=== PATIENT | male | born 1950 | race Caucasian/White ===

== ENCOUNTER 2016-10-12 12:12 | Inpatient (IN) | payer OTHER, MEDICAID ==
[~2016-10-12] VITALS: Ht 180.3 cm; Wt 81.2 kg
[2016-10-12 12:13] VITALS: BP 139/85
--- NOTE | 2016-10-12 12:15 | NUR ---
66/M BIBA FROM FIELD FOR GENERAL WEAKNESS AWAKE AND ALERT ON ARRIVAL; PT HAS TRMOR NOTED AT THIS TIME. PATIENT DENIES N/V/D; SKIN IS PINK/WARM/DRY; AAOX4 WITH EVEN AND STEADY GAIT; LUNGS CLEAR BL; HR EVEN AND REGULAR; PT DENIES ANY FEVER, CP, SOB, OR COUGH AT THIS TIME; PATIENT STATES PAIN OF 0/10 AT THIS TIME; VSS; PATIENT POSITIONED FOR COMFORT; HOB ELEVATED; BEDRAILS UP X2; BED DOWN. ER MD MADE AWARE OF PT STATUS.
[2016-10-12] MEDS ORDERED: NACL 0.9% 500 ML IV SCH (12:19)
[2016-10-12] MEDS ORDERED: MULTIVITAMIN-12 10 ML, THIAMINE 100 MG, MAGNESIUM SULFATE 50% 2,000 MG, FOLIC ACID 5 MG... IV ONE ×5 (12:20)
[2016-10-12 13:15] LABS: BASOPHILS # (AUTO) 0.1 K/uL (0.00-0.22); BASOPHILS % (AUTO) 0.9 % (0.0-2.0); EOSINOPHILS # (AUTO) 0.1 K/uL (0-0.4); EOSINOPHILS % (AUTO) 1.2 % (0.0-4.0); HEMATOCRIT 40.8 % (36-52); HEMOGLOBIN 13.4 g/dL (12.0-18.0); LYMPHOCYTES # (AUTO) 0.5 K/uL (2.0-11.5); MEAN CORPUSCULAR HEMOGLOBIN 35 pg (27-31); MEAN CORPUSCULAR HGB CONC 33 g/dL (33-37); MEAN CORPUSCULAR VOLUME 106 fL (80-94); MONOCYTES # (AUTO) 0.7 K/uL (0.8-1.0); MONOCYTES % (AUTO) 8.7 % (1.7-9.3); NEUTROPHILS # (AUTO) 6.5 K/uL (1.8-7.7); NEUTROPHILS % (AUTO) 83.2 % (42.2-75.2); PLATELET COUNT (AUTO) 105 K/uL (140-450); RED BLOOD CELL COUNT(AUTO) 3.85 MIL/uL (4.20-6.10); RED CELL DISTRIBUTION WIDTH 12.7 % (11.6-13.7); WHITE BLOOD COUNT (AUTO) 7.9 K/uL (4.8-10.8)
[2016-10-12 13:20] LABS: ALCOHOL, BLOOD < 3 mg/dL (<3)
[2016-10-12 13:21] LABS: ACETONE, SERUM SMALL (NEGATIVE)
[2016-10-12 13:23] LABS: LACTIC ACID 1.5 mmol/L (0.4-2.0)
[2016-10-12 13:25] LABS: INR 1.1 (0.8-1.2); PARTIAL THROMBOPLASTIN TIME 22.7 secs (22-35.6); PROTHROMBIN TIME 10.2 secs (10.8-13.4)
[2016-10-12 13:33] LABS: CREATINE KINASE, TOTAL 3317 U/L (39-308)
[2016-10-12 13:34] LABS: ANION GAP 31.6 (8-16); CALCIUM 8.7 mg/dL (8.5-10.1); CARBON DIOXIDE 15.1 mmol/L (21-32); CREATININE 1.3 mg/dL (0.6-1.3); POTASSIUM 3.7 mmol/L (3.5-5.1)
[2016-10-12 13:41] LABS: ALBUMIN 3.8 g/dL (3.4-5.0); TOTAL BILIRUBIN 1.5 mg/dL (0.0-1.0); TOTAL PROTEIN, SERUM 8.4 g/dL (6.4-8.2)
[2016-10-12] MEDS ORDERED: LACTATED RINGERS 1,000 ML IV ONE (14:05)
[2016-10-12] MEDS ORDERED: ONDANSETRON 4 MG/2 ML VIAL IVP PRN (14:15)
[2016-10-12] MEDS ORDERED: ACETAMINOPHEN 325 MG TAB PO PRN (14:15)
[2016-10-12] MEDS ORDERED: HYDROcodone/APAP 7.5/325 MG 1 TAB PO PRN (14:15)
[2016-10-12] MEDS ORDERED: LORazepam 2 MG/ML VIAL IVP PRN (14:30)
--- NOTE | 2016-10-12 15:04 | NUR ---
UA CAN NOT COLLECTED. PT REFUSED STRAIT CATH. NOTIFIED
--- NOTE | 2016-10-12 15:04 | NUR ---
GAVE REPORT TO BRYANT OLVERA
--- NOTE | 2016-10-12 15:05 | NUR ---
Patient will be admitted to care of DR JEAN-BAPTISTE. Admited to [facility]. Will go to [id number]. Belongings list completed. Report to BRYANT OLVERA.
[2016-10-12 15:13] LABS: MAGNESIUM 1.8 mg/dL (1.8-2.4); PHOSPHORUS 4.7 mg/dL (2.5-4.9)
--- NOTE | 2016-10-12 15:15 | NUR ---
PT ARRIVED SHORTLY AFTER RECEIVING REPORT FROM THE ER. 2 NURSES CAME WITH PT. PT WAS UNABLE TO SCOOT FROM ONE BED TO ANOTHER. PT IS DIRTY AND HAS BODY ODOR. PT IS WET AND NEEDED TO BE CHANGED. PT HAS IV ON R AC 20G SL AND L WRIST 20G SL. I ADMINISTERED THE BANANA BAG WHICH WAS NOT FINISHED IN THE ER. PT ALSO HAS A BAG OF LR, A NEW BAG. WILL HANG THIS ONE AFTER. ATTACHED THE LEADS FOR THE TELE MONITOR., PUT ON YELLOW SOCK AND BAND AND SIGN OUTSIDE THE DOOR. GAVE PT A URINAL. ADVISED PT NOT GET OUT OF BED D/T WEAKNESS IN THE LEGS. SKIN IS INTACT. JUST OLD SCABS ON ALL EXTREMITIES. MRSA SCREENING DONE. V/S WITHIN NORMAL LIMITS. ORIENTED PT TO THE ROOM AND CALL LIGHT. WILL CONTINUE TO MONITOR PT.
--- NOTE | 2016-10-12 15:50 | NUR ---
DR. CAIN WITH PT TO DO ASSESSMENT AND MEDICAL HX.
[2016-10-12 15:57] VITALS: BP 131/83
[2016-10-12] MEDS: NACL 0.9% 1,000 ML IV SCH ×2 (16:00→23:01)
--- NOTE | 2016-10-12 16:30 | NUR ---
PT IS WET. CHANGED GOWN AND PADS. CLEANED PT.
--- NOTE | 2016-10-12 16:40 | NUR ---
US YARDMASTER HERE TO DO US OF ABDOMEN.
[2016-10-12 17:08] LABS: FREE T4 (FREE THYROXINE) 1.1 ng/dL (0.76-1.46); THYROID STIMULATING HORMONE 5.33 uIU/mL (0.34-3.76)
[2016-10-12] MEDS ORDERED: ASPIRIN 81 MG TAB.CHEW PO SCH (17:30)
--- NOTE | 2016-10-12 17:36 | NUR ---
PT RESTING COMFORTABLY. WAITING FOR DINNER. NO SIGNS OF DISTRESS. BANANA BAG ALMOST DONE. WILL SWITCH TO LR. OK TO .
--- NOTE | 2016-10-12 19:27 | NUR ---
ENDORSED PT TO THE ENTRY LEVEL WEB DEVELOPER NURSE AT BEDSIDE FOR CONTINUITY OF CARE. PT IS IN STABLE CONDITION.
--- NOTE | 2016-10-12 19:28 | NUR ---
RECEIVED REPORT FROM DAY RN FOR CONTINUITY OF CARE. PATIENT IS A&OX 2/3, CONFUSED AT TIMES. SHIFT ASSESSMENT DONE, VS TAKEN, STABLE AT THIS TIME. NO S/S OF RESPIRATORY DISTRESS NOTED ON ROOM AIR. PATIENT DENIES PAIN AT THIS TIME. IV TO RT AC FLUSHED AND REINFORCED DRESSING. IV TO LT WRIST PATENT AND INFUSING FLUIDS WELL. PT HAS SMALL ABRASIONS THROUGHOUT BODY, INTACT. SAFETY/ FALL PRECAUTIONS ENFORCED. CALL LIGHT WITHIN REACH. WILL CONTINUE TO MONITOR.
[2016-10-12 20:00] VITALS: BP 111/70
[2016-10-12] MEDS: ATORVASTATIN 20 MG TAB PO SCH (21:38)
--- NOTE | 2016-10-12 21:38 | NUR ---
DUE MEDICATIONS ADMINISTERED, TOLERATED WELL. PT RESTING IN BED NO S/S OF DISTRESS NOTED. WILL CONTINUE TO MONITOR.
[2016-10-12] MEDS: LORazepam 1 MG TAB PO SCH (21:39)
[2016-10-12] MEDS: DOCUSATE SODIUM 100 MG GELCAP PO SCH (21:39)
--- NOTE | 2016-10-12 22:30 | NUR ---
PT TRYING TO GET OUT OF BED CONFUSED, REORIENTED PATIENT AND REPOSITIONED. WILL CONTINUE TO MONITOR.
[2016-10-13] VITALS: BP 135/84
--- NOTE | 2016-10-13 00:10 | NUR ---
VS TAKEN, STABLE. PT RESTING IN BED ALL NEEDS MET AT THIS TIME. WILL CONTINUE TO MONITOR.
--- NOTE | 2016-10-13 01:56 | NUR ---
PATIENT CONFUSED TRYING TO GET OUT OF BED, RE-ORIENTED PT. WILL CONTINUE TO MONITOR.
[2016-10-13 04:00] VITALS: BP_SYST 136; BP_SYST 144; BP_DIAS 78
--- NOTE | 2016-10-13 04:03 | NUR ---
VS TAKEN, STABLE. REINFORCED DRESSING TO IV. CHANGED PT LINENS AND GOWN. WILL CONTINUE TO MONITOR.
[2016-10-13] MEDS: LORazepam 1 MG TAB PO SCH ×3 (04:51→20:38)
--- NOTE | 2016-10-13 05:51 | NUR ---
PATIENT ATTEMPTING TO GET OUT OF BED, REORIENTED AND RETURNED TO BED. WILL CONTINUE TO MONITOR.
[2016-10-13 06:16] LABS: BASOPHILS # (AUTO) 0.1 K/uL (0.00-0.22); BASOPHILS % (AUTO) 1.4 % (0.0-2.0); EOSINOPHILS # (AUTO) 0.1 K/uL (0-0.4); EOSINOPHILS % (AUTO) 0.9 % (0.0-4.0); HEMATOCRIT 33.1 % (36-52); HEMOGLOBIN 11.1 g/dL (12.0-18.0); LYMPHOCYTES # (AUTO) 0.8 K/uL (2.0-11.5); LYMPHOCYTES % (AUTO) 13.7 % (20.5-51.1); MEAN CORPUSCULAR HEMOGLOBIN 35 pg (27-31); MEAN CORPUSCULAR HGB CONC 34 g/dL (33-37); MEAN CORPUSCULAR VOLUME 105 fL (80-94); MONOCYTES # (AUTO) 0.7 K/uL (0.8-1.0); MONOCYTES % (AUTO) 10.6 % (1.7-9.3); NEUTROPHILS # (AUTO) 4.4 K/uL (1.8-7.7); NEUTROPHILS % (AUTO) 73.4 % (42.2-75.2); PLATELET COUNT (AUTO) 98 K/uL (140-450); RED BLOOD CELL COUNT(AUTO) 3.14 MIL/uL (4.20-6.10); RED CELL DISTRIBUTION WIDTH 12.8 % (11.6-13.7); WHITE BLOOD COUNT (AUTO) 6.1 K/uL (4.8-10.8)
[2016-10-13 06:41] LABS: CALCIUM 7.9 mg/dL (8.5-10.1); CREATININE 0.9 mg/dL (0.6-1.3)
[2016-10-13 06:53] LABS: POTASSIUM 3.1 mmol/L (3.5-5.1)
[2016-10-13 06:56] LABS: CARBON DIOXIDE 19.5 mmol/L (21-32)
[2016-10-13 06:57] LABS: ANION GAP 22.6 (8-16)
[2016-10-13 06:58] LABS: MAGNESIUM 1.6 mg/dL (1.8-2.4); PHOSPHORUS 2.5 mg/dL (2.5-4.9)
[2016-10-13] MEDS: NACL 0.9% 1,000 ML IV SCH ×3 (07:02→23:35)
--- NOTE | 2016-10-13 07:40 | NUR ---
ENDORSED PATIENT TO DAY RN FOR CONTINUITY OF CARE, PATIENT IS IN STABLE CONDITION.
--- NOTE | 2016-10-13 07:41 | NUR ---
RECEIVED ON BED AAOX2, CONFUSED. NO SOB NOTED. NO C/O PAIN AT THIS TIME IV TO RT AC PATENT AND INTACT. CHEST CLEAR. ABDOMEN SOFT, BOWEL SOUNDS PRESENT. NO EDEMA NOTED. ABRASIONS ON BUE/BLE,FUNGUS ON TOE NAILS,DRY BLACK SCABS ON LT PLANTAR NOTED. INSTRUCTED TO CALL FOR ASSISTANCE, CALL LIGHT WITHIN REACH. PT VERBALIZED PARTIAL UNDERSTANDING.
[2016-10-13 08:00] VITALS: BP 128/76
--- NOTE | 2016-10-13 08:00 | NUR ---
RECEIVED ON BED AAOX2, CONFUSED. NO SOB NOTED. NO C/O PAIN AT THIS TIME IV TO RT AC PATENT AND INTACT. CHEST CLEAR. ABDOMEN SOFT, BOWEL SOUNDS PRESENT. NO EDEMA NOTED. ABRASIONS ON BUE/BLE,FUNGUS ON TOE NAILS,DRY BLACK SCABS ON LT PLANTAR NOTED. INSTRUCTED TO CALL FOR ASSISTANCE, CALL LIGHT WITHIN REACH. PT VERBALIZED PARTIAL UNDERSTANDING. Addendum: 10/13/16 at 1101 by Irene Schwab RN DISREGARD ABOVE NOTES, DUPLICATE.
[2016-10-13] MEDS ORDERED: MULTIVITAMIN 1 TAB PO SCH (09:00)
--- NOTE | 2016-10-13 09:30 | NUR ---
PHYSICAL THERAPY ON GOING AT THE BEDSIDE.
[2016-10-13] MEDS: DOCUSATE SODIUM 100 MG GELCAP PO SCH ×2 (09:56→20:36)
[2016-10-13] MEDS: ASPIRIN 81 MG TAB.CHEW PO SCH (09:56)
[2016-10-13] MEDS: PANTOPRAZOLE 40 MG INJ VIAL IVP SCH (09:56)
[2016-10-13] MEDS: THIAMINE 100 MG TAB PO SCH (09:57)
[2016-10-13] MEDS: MAGNESIUM OXIDE 400 MG TAB PO SCH ×2 (09:57→20:38)
[2016-10-13] MEDS: FOLIC ACID 1 MG TAB PO SCH (09:57)
--- NOTE | 2016-10-13 10:16 | NUR ---
PATIENT HAS BEEN SCREENED AND CATEGORIZED MODERATE NUTRITION RISK. PATIENT WILL BE SEEN WITHIN 3-5 DAYS OF ADMISSION. 10/15/16-10/17/[address]
[2016-10-13] MEDS ORDERED: FLUCONAZOLE 100 MG TAB PO SCH (10:20)
[2016-10-13] MEDS ORDERED: POTASSIUM CHLORIDE 10 MEQ TABER PO SCH (10:32)
[2016-10-13 11:35] LABS: CKMB RELATIVE INDEX 0.7 (0.0-2.5); CREATINE KINASE MB 14.4 ng/mL (0-3.6)
[2016-10-13 12:00] VITALS: BP 150/77
--- NOTE | 2016-10-13 14:54 | NUR ---
PT AGITATED AND TRYING TO GET OUT OF BED. ATIVAN IVP GIVEN PRN. WILL CONTINUE TO MONITOR.
--- NOTE | 2016-10-13 15:30 | NUR ---
PT RESTING, CALM. NO SOB NOTED. WILL CONTINUE TO MONITOR.
--- NOTE | 2016-10-13 15:36 | NUR ---
PT HAS BEEN INCONTINENT WITH BOWEL AND BLADDER. UNABLE TO COLLECT URINE FOR URINALYSIS. DR. CAIN NOTIFIED. NO NEW ORDERS.
[2016-10-13 16:00] VITALS: BP 144/73
--- NOTE | 2016-10-13 17:15 | NUR ---
PT SEEN BY DR. DUNCAN (PODIATRY). CONSENT FOR SURGICAL DEBRIDEMENT OF TOE NAILS NOT SIGNED BY PT DUE TO CONDITION. PT IS CALM NOW BUT DROWSY FORM ATIVAN. NO NEXT OF KIN ON PT'S FACE SHEET. DR. DUNCAN MADE AWARE AND STATED HE WILL COME BACK TOMORROW.
--- NOTE | 2016-10-13 18:00 | NUR ---
PT AWAKE, EATING DINNER ASSISTED BY EVENT PLANNING INTERN. FOOD TOLERATED WELL.
--- NOTE | 2016-10-13 19:30 | NUR ---
RECEIVED REPORT FROM DAYSHIFT NURSE. PT RESTING IN BED, AOX2, CONFUSED AT TIMES. PT DENIES CP, SOB, PAIN OR S/S OF ACUTE DISTRESS. GENERALIZED WEAKNESS NOTED. WARNING COORDINATION METEOROLOGIST IN PLACE. SCDS IN PLACE. MULTIPLE ABRASIONS NOTED, BILATERAL TOES FUNGUS AND DRY RIGHT PLANTAR SCAB NOTED. DISCUSSED AND REVIEWED PLAN OF CARE WITH PT, PT VERBALIZES UNDERSTANDING. WILL CONTINUE TO REINFORCE. PT UNABLE TO SIGN CONSENT FOR SURGICAL DEBRIDEMENT AT THIS TIME DUE TO CONFUSION. PT STATED "I DON'T WANT CUTS ON MY FEET BECAUSE I JUST DRINK ALCOHOL." NO NEXT OF KIN NOTED AT THIS TIME. PT INSTRUCTED TO USE CALL LIGHT TO USE URINAL TO GET URINE SAMPLE, PT INCONTINENT, WILL CONTINUE TO TRY TO GET URINE SAMPLE. IV ACCESS ASYMPTOMATIC, PATENT AND INTACT. IVF INFUSING WELL. SAFETY MEASURES ENSURED. CALL LIGHT WITHIN REACH. WILL CONTINUE TO MONITOR.
[2016-10-13 20:00] VITALS: BP 145/93
--- NOTE | 2016-10-13 20:00 | NUR ---
PT TEMP 99.8, COOLING MEASURES AND ICE PACKS STARTED. PT DENIES CHILLS OR S/S OF INFECTION. WILL CONTINUE TO MONITOR.
[2016-10-13] MEDS: ATORVASTATIN 20 MG TAB PO SCH (20:39)
--- NOTE | 2016-10-13 20:47 | NUR ---
PT REFUSED ATORVASTATIN DESPITE EDUCATION, CHOLESTEROL 169, LDL 70, HDL 85; PT STATED "IF IT AIN'T BROKE, DON'T FIX IT." REMAINING DUE MEDICATIONS ADMINISTERED WITH EDUCATION, PT VERBALIZES UNDERSTANDING. PT TOLERATED MEDS WELL. ASSISTED PT WITH ADLS. US TECH IN TO DO US CAROTID AT BEDSIDE.
--- NOTE | 2016-10-13 22:00 | NUR ---
PT TEMP 98.4, NO CHILLS OR S/S OF INFECTION. CONDITION STABLE. WILL CONTINUE TO MONITOR.
[2016-10-14] VITALS: BP 154/94
--- NOTE | 2016-10-14 | NUR ---
PT RESTING IN BED. CONDITION STABLE. ALL NEEDS MET. SAFETY MEASURES ENSURED. CALL LIGHT WITHIN REACH. WILL CONTINUE TO MONITOR.
--- NOTE | 2016-10-14 03:50 | NUR ---
ATTEMPTED TO TAKE ORTHOSTATIC VITAL SIGNS. PT ABLE TO SIT UPRIGHT WITH ASSISTANCE. VS NOTED WITH SITTING. PT ABLE TO STAND WITH 2 PERSON ASSIST WITH MAXIMUM ASSISTANCE, SEVERE WEAKNESS OF LEGS NOTED. UNABLE TO TAKE VS WHILE STANDING. PT TOLERATED WELL. ATTEMPTED TO OBTAIN CONSENT FOR SURGICAL DEBRIDEMENT OF TOES, PT REFUSED AND STATED "I DON'T WANT TO GET CUT UP, I WOULD JUST CLEAN THEM WITH ALCOHOL." PT EDUCATED AND INFORMED OF THE INDICATIONS AND RISKS. WILL CONTINUE TO MONITOR.
[2016-10-14 04:00] VITALS: BP 124/76
[2016-10-14] MEDS: LORazepam 1 MG TAB PO SCH ×3 (04:43→21:05)
[2016-10-14 06:20] LABS: BASOPHILS # (AUTO) 0.1 K/uL (0.00-0.22); BASOPHILS % (AUTO) 1.6 % (0.0-2.0); EOSINOPHILS % (AUTO) 0.8 % (0.0-4.0); HEMATOCRIT 33.2 % (36-52); HEMOGLOBIN 11.2 g/dL (12.0-18.0); LYMPHOCYTES # (AUTO) 0.8 K/uL (2.0-11.5); LYMPHOCYTES % (AUTO) 15.2 % (20.5-51.1); MEAN CORPUSCULAR HEMOGLOBIN 36 pg (27-31); MEAN CORPUSCULAR HGB CONC 34 g/dL (33-37); MEAN CORPUSCULAR VOLUME 106 fL (80-94); MONOCYTES # (AUTO) 0.6 K/uL (0.8-1.0); MONOCYTES % (AUTO) 11.9 % (1.7-9.3); NEUTROPHILS # (AUTO) 3.9 K/uL (1.8-7.7); NEUTROPHILS % (AUTO) 70.5 % (42.2-75.2); PLATELET COUNT (AUTO) 113 K/uL (140-450); RED BLOOD CELL COUNT(AUTO) 3.12 MIL/uL (4.20-6.10); WHITE BLOOD COUNT (AUTO) 5.4 K/uL (4.8-10.8)
[2016-10-14 06:36] LABS: ANION GAP 12.4 (8-16); CARBON DIOXIDE 28.6 mmol/L (21-32); CREATININE 0.8 mg/dL (0.6-1.3)
[2016-10-14 06:44] LABS: MAGNESIUM 1.2 mg/dL (1.8-2.4); PHOSPHORUS 1.9 mg/dL (2.5-4.9)
[2016-10-14] MEDS ORDERED: MAG SULF 2000 MG/WATER PREMIX 100 ML IV SCH ×2 (07:30→11:20)
--- NOTE | 2016-10-14 07:33 | NUR ---
ENDORSED TO PLAN OF CARE TO DAYSHIFT. CONDITION STABLE.
--- NOTE | 2016-10-14 07:34 | NUR ---
RECEIVED REPORT FROM THE TROUBLE TRACER NURSE AT BEDSIDE FOR CONTINUITY OF CARE. PT IS SLEEPING. NO SIGNS OF DISTRESS. WILL BE BACK TO ASSESS PT.
[2016-10-14] MEDS: NACL 0.9% 1,000 ML IV SCH (07:55)
[2016-10-14 08:00] VITALS: BP 148/77
[2016-10-14] MEDS ORDERED: POTASSIUM CHLORIDE 10 MEQ TABER PO SCH ×2 (08:00→13:00)
[2016-10-14] MEDS: SODIUM PHOS / POTASSIUM PHOS 1 PKT PDR PO SCH ×3 (08:00→17:00)
--- NOTE | 2016-10-14 08:10 | NUR ---
V/S WITHIN NORMAL LIMITS. PT IS AWAKE. I INTRODUCED MYSELF AND UPDATED THE BOARD. PT IS STILL CONFUSED. DR. DUNCAN ORDERED SURGICAL DEBRIDEMENT OF TOES. PER BRIM MOLDER NURSE, PT REFUSED TO SIGN . UA STILL HASN'T BEEN COLLECTED SINCE PT IS INCONTINENT. IV IN R AC 20G NS AT 120 STILL INFUSING. PT IS LOW IN MAG, PHOS, AND K. WILL TALK TO MD. WILL CONTINUE TO MONITOR PT.
--- NOTE | 2016-10-14 08:30 | NUR ---
P/T IS HERE. GOT HIM UP BUT SO WOBBY AND SHAKEY ON HIS FEET. SAT HIM DOWN IN A LARGE CHAIR. BREAKFAST IN IT. WILL HAVE THE TIPPLE MECHANIC CHANGE LINENS. WILL CONTINUE TO MONITOR PT.
[2016-10-14] MEDS: LACTOBACILLUS RHAMNOSUS GG 1 EACH CAP PO SCH (09:00)
[2016-10-14] MEDS: MAGNESIUM OXIDE 400 MG TAB PO SCH ×2 (09:01→21:06)
[2016-10-14] MEDS: ASPIRIN 81 MG TAB.CHEW PO SCH (09:01)
[2016-10-14] MEDS: THIAMINE 100 MG TAB PO SCH (09:02)
[2016-10-14] MEDS: DOCUSATE SODIUM 100 MG GELCAP PO SCH ×2 (09:02→21:05)
[2016-10-14] MEDS: FOLIC ACID 1 MG TAB PO SCH (09:02)
[2016-10-14] MEDS: MULTIVITAMIN/MINERALS 1 TAB PO SCH (09:02)
[2016-10-14] MEDS: PANTOPRAZOLE 40 MG INJ VIAL IVP SCH (09:03)
--- NOTE | 2016-10-14 09:10 | NUR ---
ADMINISTERED MORNING MEDS. PT TOLERATED WELL. MAG INFUSING. WILL CONTINUE TO MONITOR PT.
--- NOTE | 2016-10-14 10:50 | NUR ---
PT BACK IN BED. NO COMPLAINTS AT THIS TIME. WILL CONTINUE TO MONITOR. PT.
[2016-10-14 12:00] VITALS: BP 145/80
[2016-10-14] MEDS: PIPER/TAZO 2.25GM/D5W PREMIX 50 ML IV SCH ×2 (12:55→18:02)
--- NOTE | 2016-10-14 13:59 | NUR ---
PT IS RESTING COMFORTABLY IN BED, DOZING OFF. ATE MOST OF HIS LUNCH. NO SIGNS OF DISTRESS. NO COMPLAINTS AT THIS TIME. WILL CONTINUE TO MONITOR PT.
--- NOTE | 2016-10-14 14:42 | NUR ---
SS NOTE: PER ANAHI FROM [facility] ([phone]), THEY ARE ABLE TO ACCEPT PT UPON DISCHARGE.
--- NOTE | 2016-10-14 14:47 | NUR ---
PT HAD A BM. CLEANED PT WITH CULINARY ASSISTANT. PT IS CLEAN AND RESTING COMFORTABLY. WILL CONTINUE TO MONITOR PT.
[2016-10-14 16:00] VITALS: BP 149/92
--- NOTE | 2016-10-14 16:20 | NUR ---
PT RESTING COMFORTABLY. NO SIGNS OF DISTRESS. WILL CONTINUE TO MONITOR PT.
[2016-10-14 17:36] LABS: APPEARANCE,URINE CLEAR (CLEAR); BILIRUBIN,URINE NEGATIVE (NEGATIVE); BLOOD, URINE NEGATIVE (NEGATIVE); COLOR,URINE YELLOW (YELLOW); LEUKOCYTE ESTERASE ,URINE NEGATIVE (NEGATIVE); NITRITE, URINE NEGATIVE (NEGATIVE); PROTEIN,URINE NEGATIVE (NEGATIVE); UGLUCOSE NEGATIVE (NEGATIVE); UROBILINOGEN,URINE 0.2 EU/dL (0.2 - 1)
[2016-10-14 17:37] LABS: AMPHETAMINE, URINE NEG. ng/ml (NEG <=1000); BARBITURATE, URINE NEG. ng/ml (NEG <=200); BENZODIAZEPINE, URINE NEG. ng/mL (NEG <=200); CANNABINOID, URINE NEG. ng/mL (NEG <=50); COCAINE, URINE NEG. ng/mL (NEG <=300); OPIATE, URINE NEG. ng/mL (NEG <=2000); PHENCYCLIDINE SCREEN,URINE NEG. ng/mL (NEG <=25)
[2016-10-14 17:47] LABS: BACTERIA,URINE None Seen /HPF (None Seen); RBC,URINE 0-3 /HPF (0-5); SQUAMOUS EPITHELIAL CELL,UR RARE /LPF (0-3 (FEW)); WBC,URINE 0-3 /HPF (0-5)
--- NOTE | 2016-10-14 18:18 | NUR ---
PT EATING DINNER. NO SIGNS OF DISTRESS. NO COMPLAINTS. WILL CONTINUE TO MONITOR PT.
--- NOTE | 2016-10-14 19:20 | NUR ---
ENDORSED PT TO THE PROPELLER ENGINEER NURSE AT BEDSIDE FOR CONTINUITY OF CARE . PT IS EATING DINNER. PT IN STABLE CONDITION.
--- NOTE | 2016-10-14 19:25 | NUR ---
RECEIVED PT FROM MAY HURTADO PT IS AAOX3 COOPERATIVE IV ON RT FA INFUSING WELL TKO NOT DISTRESS NOTED AT THIS TIME REPOSITIONED
[2016-10-14 20:00] VITALS: BP 154/91
[2016-10-14] MEDS: ATORVASTATIN 20 MG TAB PO SCH (21:05)
--- NOTE | 2016-10-14 22:30 | NUR ---
MAG 1.7 DR QUICK DIRECTOR OF INSTITUTIONAL SALES FOR DR JEAN-BAPTISTE WAS NOTIFY
[2016-10-15] VITALS: BP 136/79
[2016-10-15] MEDS: PIPER/TAZO 2.25GM/D5W PREMIX 50 ML IV SCH ×3 (00:16→12:03)
--- NOTE | 2016-10-15 02:30 | NUR ---
SPONGE BATH GIVEN LINEN CHANGED REPOSITIONED Q2HNOT DISTRESS NOTED AT THIS TIME
[2016-10-15] MEDS: LORazepam 1 MG TAB PO SCH ×2 (04:27→12:03)
--- NOTE | 2016-10-15 05:09 | NUR ---
PT REPOSITIONED AND LINE CHANGED AGAIN PT WAS WET
[2016-10-15] MEDS: NACL 0.9% 1,000 ML IV SCH (06:52)
--- NOTE | 2016-10-15 06:53 | NUR ---
PT SLEEPING NOT DISTRESS NOTED ,IV ON RT FA INFUSING WELL LINEN ALREADY CHANGED
--- NOTE | 2016-10-15 06:54 | NUR ---
RECEIVED REPORT FROM NIGHT RN AT PT BEDSIDE. PT RESTING IN BED. ALERT TO SELF AND ENVIRONMENT. CALM AND COOPERATIVE, CONFUSED. DENIES PAIN. NO S/S OF ACUTE DISTRESS. BED ALARM CHECKED. BED IN LOWEST POSITION. CALL LIGHT WITHIN REACH. IV SITE PATENT AND INTACT. WILL CONTINUE TO MONITOR.
[2016-10-15 08:00] VITALS: BP 149/89
[2016-10-15] MEDS: SODIUM PHOS / POTASSIUM PHOS 1 PKT PDR PO SCH ×2 (08:00→12:03)
--- NOTE | 2016-10-15 09:00 | NUR ---
MD ROUNDED WITH PATIENT. NO NEW ORDERS.
[2016-10-15] MEDS: FOLIC ACID 1 MG TAB PO SCH (09:06)
[2016-10-15] MEDS: DOCUSATE SODIUM 100 MG GELCAP PO SCH (09:06)
[2016-10-15] MEDS: PANTOPRAZOLE 40 MG INJ VIAL IVP SCH (09:06)
[2016-10-15] MEDS: ASPIRIN 81 MG TAB.CHEW PO SCH (09:06)
[2016-10-15] MEDS: LACTOBACILLUS RHAMNOSUS GG 1 EACH CAP PO SCH (09:06)
[2016-10-15] MEDS: MULTIVITAMIN/MINERALS 1 TAB PO SCH (09:07)
[2016-10-15] MEDS: MAGNESIUM OXIDE 400 MG TAB PO SCH (09:07)
[2016-10-15] MEDS: THIAMINE 100 MG TAB PO SCH (09:07)
[2016-10-15 10:23] LABS: BASOPHILS # (AUTO) 0.2 K/uL (0.00-0.22); BASOPHILS % (AUTO) 3.7 % (0.0-2.0); EOSINOPHILS % (AUTO) 0.6 % (0.0-4.0); HEMATOCRIT 37.5 % (36-52); HEMOGLOBIN 12.6 g/dL (12.0-18.0); LYMPHOCYTES % (AUTO) 19.7 % (20.5-51.1); MEAN CORPUSCULAR HEMOGLOBIN 36 pg (27-31); MEAN CORPUSCULAR HGB CONC 34 g/dL (33-37); MEAN CORPUSCULAR VOLUME 106 fL (80-94); MONOCYTES # (AUTO) 0.4 K/uL (0.8-1.0); MONOCYTES % (AUTO) 9.1 % (1.7-9.3); NEUTROPHILS # (AUTO) 3.3 K/uL (1.8-7.7); NEUTROPHILS % (AUTO) 66.9 % (42.2-75.2); PLATELET COUNT (AUTO) 131 K/uL (140-450); RED BLOOD CELL COUNT(AUTO) 3.55 MIL/uL (4.20-6.10); RED CELL DISTRIBUTION WIDTH 12.5 % (11.6-13.7)
[2016-10-15 11:16] LABS: WHITE BLOOD COUNT (AUTO) 4.9 K/uL (4.8-10.8)
--- NOTE | 2016-10-15 11:32 | NUR ---
SS NOTE: PER ANAHI FROM [facility] ([phone]), PT CAN GO TO ROOM [address] UNDER DR. Chevy BOB ANYTIME. SHE ALSO STATED THAT THEY CAN PAY FOR [facility]. ARSENIO KERNS.
--- NOTE | 2016-10-15 12:08 | NUR ---
transport arranged with [facility]/Darren faust and pick up truck driver at 3 pm. will go to [facility] room 225A.
--- NOTE | 2016-10-15 12:30 | NUR ---
REPORT GIVEN TO BRYANT KELLY AT [facility]. MADE AWARE OF PATIENT TRANSFER AND CIGAR MAKING MACHINE OPERATOR TIME. PT RESTING IN BED, MADE AWARE OF PLANS AND PROCEDURES. OKAY WITH TRANSFER. Addendum: 10/15/16 at 1432 by Robbin Kirk RN *PATIENT OKAY WITH TRANSFER TO [facility].*
[2016-10-15] MEDS ORDERED: MULT-1736 PO (12:42)
[2016-10-15] MEDS ORDERED: PHOS1PDR4 PO (12:42)
[2016-10-15] MEDS ORDERED: ONDA2SOL45 IVP (12:42)
[2016-10-15] MEDS ORDERED: DOCU-67 PO (12:42)
[2016-10-15] MEDS ORDERED: ATI2I IVP (12:42)
[2016-10-15] MEDS ORDERED: ATOR20TA40 PO (12:42)
[2016-10-15] MEDS ORDERED: LORA-476 PO (12:42)
[2016-10-15] MEDS ORDERED: ACET-9529 PO (12:42)
[2016-10-15] MEDS ORDERED: ACET-1182 PO (12:42)
[2016-10-15] MEDS ORDERED: LACT10CA PO (12:42)
[2016-10-15] MEDS ORDERED: PANT40PD7 IVP (12:42)
[2016-10-15] MEDS ORDERED: THIA-8 PO (12:42)
[2016-10-15] MEDS ORDERED: MAG400 PO (12:42)
[2016-10-15] MEDS ORDERED: FOLI1TAB90 PO (12:42)
[2016-10-15] MEDS ORDERED: ASPI81CT27 PO (12:42)
--- NOTE | 2016-10-15 13:43 | NUR ---
PER ANAHI AT [facility] THEY WILL COVER THE COST OF PT TRANSPORT AND SHE HAS CHANGED PICKUP TIME TO 1600
--- NOTE | 2016-10-15 14:30 | NUR ---
PT FOUND WITH IV REMOVED. NEW IV #20 RIGHT FA, STARTED.
--- NOTE | 2016-10-15 16:00 | NUR ---
PT DISCHARGE INSTRUCTIONS GIVEN, VERBALIZED UNDERSTANDING. PT ALERT AND ORIENTED TO TIME AND PLACE. PT DENIES PAIN. [facility] HERE TO TAKE PATIENT TO [facility]. [facility] AWARE OF PATIENT TRANSFER. PT IV SITE PATENT AND INTACT. PT TRANSFERRED SELF TO WHEELCHAIR WITH ASSIST. PT STABLE FOR DISCHARGE.
== END 2016-10-15 16:00 | DRG 73 ==
LOC: MED 12:12 → MTU 14:25
PROVIDERS: ADMIT Family Medicine; ATTEND Family Medicine
PROC: 0HBRXZZ Excision of Toe Nail, External Approach (ICD-10-PCS; principal; 2016-10-14)
PROC: 0HBRXZZ Excision of Toe Nail, External Approach (ICD-10-PCS; 2016-10-14)
PROC: 0HBRXZZ Excision of Toe Nail, External Approach (ICD-10-PCS; 2016-10-14)
PROC: 0HBRXZZ Excision of Toe Nail, External Approach (ICD-10-PCS; 2016-10-14)
PROC: 0HBRXZZ Excision of Toe Nail, External Approach (ICD-10-PCS; 2016-10-14)
PROC: 0HBRXZZ Excision of Toe Nail, External Approach (ICD-10-PCS; 2016-10-14)
PROC: 0HBRXZZ Excision of Toe Nail, External Approach (ICD-10-PCS; 2016-10-14)
PROC: 0HBRXZZ Excision of Toe Nail, External Approach (ICD-10-PCS; 2016-10-14)
PROC: 0HBRXZZ Excision of Toe Nail, External Approach (ICD-10-PCS; 2016-10-14)
PROC: 0HBRXZZ Excision of Toe Nail, External Approach (ICD-10-PCS; 2016-10-14)
DX: G90.9 Disorder of the autonomic nervous system, unspecified (principal); I50.43 Acute on chronic combined systolic (congestive) and diastolic (congestive) heart failure; N17.0 Acute kidney failure with tubular necrosis; G92 Toxic encephalopathy; M62.82 Rhabdomyolysis; E87.2 Acidosis; E51.2 Wernicke's encephalopathy; F10.288 Alcohol dependence with other alcohol-induced disorder; R78.81 Bacteremia; E86.0 Dehydration; E80.6 Other disorders of bilirubin metabolism; E87.6 Hypokalemia; E83.42 Hypomagnesemia; B35.1 Tinea unguium; I11.0 Hypertensive heart disease with heart failure; E83.39 Other disorders of phosphorus metabolism; Z59.0 Homelessness; Z56.0 Unemployment, unspecified; Z87.81 Personal history of (healed) traumatic fracture
CPT/HCPCS: 36415; 70450; 71010; 76705; 80048; 80053; 80305; 81001; 82009; 82140; 82150; 82550; 82553; 82948; 83036; 83605; 83690; 83735; 83874; 83880; 84100; 84439; 84443; 84484; 85025; 85610; 85730; 87040; 87081; 87086; 93005; 93880; 96374; 97110; 97116; 97140; 97530; 99285; A9153; C9113; G0482; J2060; J2543; J3411; J3475; J3490; J7030; J7120; Q0092

== ENCOUNTER 2017-06-15 11:08 | Inpatient (IN) | payer OTHER ==
[~2017-06-15] VITALS: Ht 180.3 cm; Wt 78.5 kg
[~2017-06-15 11:08] MED LIST: ACET-1182 PO; ACET-9529 PO; ASPI81CT95 PO; ATI2I IVP; ATOR20TA40 PO; DOCU-299 PO; FOLI1TAB90 PO; LACT10CA PO; LORA-476 PO; MAG400 PO; MULT-1736 PO; ONDA2SOL45 IVP; PANT40PD7 IVP; PHOS1PDR4 PO; THIA-8 PO
[2017-06-15 11:10] VITALS: BP 155/102
[2017-06-15] MEDS ORDERED: NACL 0.9% 2,000 ML IV ONE (12:05)
[2017-06-15 13:30] LABS: ANION GAP 17.2 (8-16); BASOPHILS # (AUTO) 0.1 K/uL (0.00-0.22); BASOPHILS % (AUTO) 1.1 % (0.0-2.0); CARBON DIOXIDE 26.1 mmol/L (21-32); CHLORIDE 107 mmol/L (98-107); EOSINOPHILS % (AUTO) 0.1 % (0.0-4.0); GFR ARICAN-AMERICAN 96 mL/min (>90); GLUCOSE 130 mg/dL (74-106); HEMOGLOBIN 12.9 g/dL (12.0-18.0); LYMPHOCYTES # (AUTO) 0.5 K/uL (2.0-11.5); LYMPHOCYTES % (AUTO) 7.4 % (20.5-51.1); MEAN CORPUSCULAR HEMOGLOBIN 35 pg (27-31); MEAN CORPUSCULAR HGB CONC 34 g/dL (33-37); MEAN CORPUSCULAR VOLUME 103 fL (80-94); MONOCYTES # (AUTO) 0.7 K/uL (0.8-1.0); MONOCYTES % (AUTO) 10.2 % (1.7-9.3); NEUTROPHILS # (AUTO) 5.2 K/uL (1.8-7.7); NEUTROPHILS % (AUTO) 81.2 % (42.2-75.2); PLATELET COUNT (AUTO) 143 K/uL (140-450); POTASSIUM 4.3 mmol/L (3.5-5.1); RED BLOOD CELL COUNT(AUTO) 3.71 MIL/uL (4.20-6.10); SODIUM SERUM 146 mmol/L (136-145); UREA NITROGEN, BLOOD 12 mg/dL (7-18); WHITE BLOOD COUNT (AUTO) 6.6 K/uL (4.8-10.8)
[2017-06-15 13:36] LABS: ALBUMIN 3.4 g/dL (3.4-5.0); ASPARTATE AMINOTRANSFERASE 71 U/L (15-37); LIPASE 246 U/L (73-393); PHOSPHORUS 2.5 mg/dL (2.5-4.9); TOTAL BILIRUBIN 0.5 mg/dL (0.0-1.0)
[2017-06-15 13:43] LABS: PROTHROMBIN TIME 10.6 secs (10.8-13.4)
[2017-06-15 15:03] LABS: APPEARANCE,URINE CLEAR (CLEAR); BILIRUBIN,URINE NEGATIVE (NEGATIVE); BLOOD, URINE NEGATIVE (NEGATIVE); COLOR,URINE YELLOW (YELLOW); LEUKOCYTE ESTERASE ,URINE NEGATIVE (NEGATIVE); NITRITE, URINE NEGATIVE (NEGATIVE); UGLUCOSE NEGATIVE (NEGATIVE)
[2017-06-15 15:12] LABS: BARBITURATE, URINE NEG. ng/ml (NEG <=200); BENZODIAZEPINE, URINE NEG. ng/mL (NEG <=200); CANNABINOID, URINE POS. ng/mL (NEG <=50); COCAINE, URINE NEG. ng/mL (NEG <=300); OPIATE, URINE NEG. ng/mL (NEG <=2000); PHENCYCLIDINE SCREEN,URINE NEG. ng/mL (NEG <=25)
[2017-06-15] MEDS: NACL 0.9% 1,000 ML IV SCH (15:22)
[2017-06-15] MEDS ORDERED: LORazepam 0.5 MG TAB PO PRN (15:25)
[2017-06-15] MEDS ORDERED: ACETAMINOPHEN 325 MG TAB PO PRN (15:25)
[2017-06-15] MEDS ORDERED: ZOLPIDEM 5 MG TAB PO PRN (15:25)
[2017-06-15] MEDS ORDERED: HYDROcodone/APAP 7.5/325 MG 1 TAB PO PRN (15:25)
[2017-06-15] MEDS ORDERED: LORazepam 2 MG/ML VIAL IVP PRN (15:25)
[2017-06-15] MEDS ORDERED: DOCUSATE SODIUM 100 MG GELCAP PO PRN (15:25)
[2017-06-15] MEDS ORDERED: ONDANSETRON 4 MG/2 ML VIAL IM/IVP PRN (15:25)
[2017-06-15] MEDS ORDERED: MORPHINE SULFATE 2 MG/ML SYR IVP PRN (15:25)
[2017-06-15 16:10] VITALS: BP 159/107
[2017-06-15 16:26] LABS: CHOL/HDL RATIO 1.8 (1-4.5); FREE T4 (FREE THYROXINE) 1.01 ng/dL (0.76-1.46); MAGNESIUM 1.3 mg/dL (1.8-2.4); PHOSPHORUS 2.5 mg/dL (2.5-4.9); THYROID STIMULATING HORMONE 3.01 uIU/mL (0.34-3.74)
[2017-06-15] MEDS ORDERED: LORazepam 1 MG TAB PO SCH (17:00)
[2017-06-15] MEDS ORDERED: MAG SULF 2000 MG/WATER PREMIX 50 ML IV SCH (17:30)
[2017-06-15 20:00] VITALS: BP 155/85
[2017-06-15 20:47] VITALS: BP 161/108
[2017-06-15] MEDS ORDERED: LISINOPRIL 20 MG TAB PO SCH (20:50)
[2017-06-15] MEDS: LORazepam 1 MG TAB PO SCH (20:54)
[2017-06-16] VITALS: BP 145/109
[2017-06-16] MEDS ORDERED: LISINOPRIL 20 MG TAB PO SCH (00:10)
[2017-06-16] MEDS ORDERED: LISINOPRIL 10 MG TAB ONE (00:36)
[2017-06-16] MEDS: NACL 0.9% 1,000 ML IV SCH ×3 (01:22→21:05)
[2017-06-16 04:00] VITALS: BP 145/92
[2017-06-16] MEDS: LORazepam 1 MG TAB PO SCH ×3 (05:31→20:08)
[2017-06-16 07:11] LABS: BASOPHILS # (AUTO) 0.1 K/uL (0.00-0.22); EOSINOPHILS % (AUTO) 0.6 % (0.0-4.0); HEMATOCRIT 36.9 % (36-52); HEMOGLOBIN 12.4 g/dL (12.0-18.0); LYMPHOCYTES # (AUTO) 1.1 K/uL (2.0-11.5); LYMPHOCYTES % (AUTO) 21.5 % (20.5-51.1); MEAN CORPUSCULAR HEMOGLOBIN 35 pg (27-31); MEAN CORPUSCULAR HGB CONC 34 g/dL (33-37); MEAN CORPUSCULAR VOLUME 103 fL (80-94); MONOCYTES # (AUTO) 0.7 K/uL (0.8-1.0); MONOCYTES % (AUTO) 13.6 % (1.7-9.3); NEUTROPHILS # (AUTO) 3.3 K/uL (1.8-7.7); NEUTROPHILS % (AUTO) 62.3 % (42.2-75.2); PLATELET COUNT (AUTO) 130 K/uL (140-450); RED BLOOD CELL COUNT(AUTO) 3.59 MIL/uL (4.20-6.10); RED CELL DISTRIBUTION WIDTH 14.1 % (11.6-13.7); WHITE BLOOD COUNT (AUTO) 5.2 K/uL (4.8-10.8)
[2017-06-16 07:44] LABS: ANION GAP 16.3 (8-16); CARBON DIOXIDE 26.1 mmol/L (21-32); CREATININE 0.9 mg/dL (0.7-1.3); POTASSIUM 3.4 mmol/L (3.5-5.1)
[2017-06-16 08:00] VITALS: BP 156/103
[2017-06-16] MEDS: FOLIC ACID 1 MG TAB PO SCH (08:26)
[2017-06-16] MEDS: LISINOPRIL 20 MG TAB PO SCH (08:26)
[2017-06-16] MEDS: MULTIVITAMIN/MINERALS 1 TAB PO SCH (08:26)
[2017-06-16] MEDS: THIAMINE 100 MG TAB PO SCH (08:27)
[2017-06-16 08:31] LABS: T4 (THYROXINE) 6.1 ug/dL (4.5-12.0)
[2017-06-16] MEDS ORDERED: POTASSIUM CHLORIDE 10 MEQ TABER PO SCH (08:47)
[2017-06-16] MEDS ORDERED: MAG SULF 2000 MG/WATER PREMIX 50 ML IV SCH (08:47)
[2017-06-16 12:00] VITALS: BP 157/85
[2017-06-16 16:00] VITALS: BP 146/105
[2017-06-16] MEDS ORDERED: LABETALOL 100 MG/20 ML VIAL IV SCH (16:20)
[2017-06-16 20:00] VITALS: BP 149/99
[2017-06-16] MEDS: METOPROLOL 25 MG TAB PO SCH (20:08)
[2017-06-17] VITALS: BP 150/85
[2017-06-17 04:00] VITALS: BP 152/89
[2017-06-17] MEDS: LORazepam 1 MG TAB PO SCH ×3 (04:09→20:52)
[2017-06-17 07:19] LABS: BASOPHILS # (AUTO) 0.2 K/uL (0.00-0.22); BASOPHILS % (AUTO) 2.6 % (0.0-2.0); EOSINOPHILS % (AUTO) 0.6 % (0.0-4.0); HEMATOCRIT 38.6 % (36-52); HEMOGLOBIN 13.2 g/dL (12.0-18.0); LYMPHOCYTES # (AUTO) 1.3 K/uL (2.0-11.5); LYMPHOCYTES % (AUTO) 19.4 % (20.5-51.1); MEAN CORPUSCULAR HEMOGLOBIN 35 pg (27-31); MEAN CORPUSCULAR HGB CONC 34 g/dL (33-37); MEAN CORPUSCULAR VOLUME 102 fL (80-94); MONOCYTES # (AUTO) 0.8 K/uL (0.8-1.0); MONOCYTES % (AUTO) 11.9 % (1.7-9.3); NEUTROPHILS # (AUTO) 4.6 K/uL (1.8-7.7); NEUTROPHILS % (AUTO) 65.5 % (42.2-75.2); PLATELET COUNT (AUTO) 139 K/uL (140-450); RED CELL DISTRIBUTION WIDTH 13.9 % (11.6-13.7); WHITE BLOOD COUNT (AUTO) 6.9 K/uL (4.8-10.8)
[2017-06-17 07:21] LABS: CARBON DIOXIDE 23.9 mmol/L (21-32); CREATININE 0.9 mg/dL (0.7-1.3); POTASSIUM 3.9 mmol/L (3.5-5.1)
[2017-06-17 08:00] VITALS: BP 155/91
[2017-06-17] MEDS: FOLIC ACID 1 MG TAB PO SCH (08:42)
[2017-06-17] MEDS: LISINOPRIL 20 MG TAB PO SCH (08:42)
[2017-06-17] MEDS: MULTIVITAMIN/MINERALS 1 TAB PO SCH (08:42)
[2017-06-17] MEDS: THIAMINE 100 MG TAB PO SCH (08:42)
[2017-06-17] MEDS: METOPROLOL 25 MG TAB PO SCH ×2 (08:43→20:52)
[2017-06-17] MEDS: NACL 0.9% 1,000 ML IV SCH ×2 (09:49→17:22)
[2017-06-17] MEDS ORDERED: MAG SULF 2000 MG/WATER PREMIX 50 ML IV SCH (11:22)
[2017-06-17 12:00] VITALS: BP 160/104
[2017-06-17] MEDS: CHLORHEXADINE GLUC 2% CLOTH TP SCH (15:12)
[2017-06-17 20:47] VITALS: BP 150/99
[2017-06-18] MEDS ORDERED: LORazepam 2 MG/ML VIAL IVP SCH ×2 (01:15→03:45)
[2017-06-18 01:31] VITALS: BP 146/98
[2017-06-18] MEDS: LORazepam 1 MG TAB PO SCH ×3 (05:00→21:19)
[2017-06-18] MEDS: NACL 0.9% 1,000 ML IV SCH (06:35)
[2017-06-18 07:37] LABS: BASOPHILS # (AUTO) 0.2 K/uL (0.00-0.22); BASOPHILS % (AUTO) 2.2 % (0.0-2.0); EOSINOPHILS % (AUTO) 0.6 % (0.0-4.0); HEMATOCRIT 40.8 % (36-52); HEMOGLOBIN 13.6 g/dL (12.0-18.0); LYMPHOCYTES # (AUTO) 1.2 K/uL (2.0-11.5); LYMPHOCYTES % (AUTO) 16.7 % (20.5-51.1); MEAN CORPUSCULAR HEMOGLOBIN 34 pg (27-31); MEAN CORPUSCULAR HGB CONC 33 g/dL (33-37); MEAN CORPUSCULAR VOLUME 102 fL (80-94); MONOCYTES # (AUTO) 0.9 K/uL (0.8-1.0); MONOCYTES % (AUTO) 12.8 % (1.7-9.3); NEUTROPHILS # (AUTO) 4.6 K/uL (1.8-7.7); NEUTROPHILS % (AUTO) 67.7 % (42.2-75.2); PLATELET COUNT (AUTO) 159 K/uL (140-450); RED BLOOD CELL COUNT(AUTO) 3.98 MIL/uL (4.20-6.10); RED CELL DISTRIBUTION WIDTH 13.6 % (11.6-13.7); WHITE BLOOD COUNT (AUTO) 6.9 K/uL (4.8-10.8)
[2017-06-18 08:00] VITALS: BP 159/112
[2017-06-18] MEDS ORDERED: MAG SULF 2000 MG/WATER PREMIX 50 ML IV SCH (09:00)
[2017-06-18] MEDS ORDERED: MUPIROCIN 2% OINT 22 GM TUBE TP SCH (09:00)
[2017-06-18] MEDS ORDERED: MAGNESIUM OXIDE 400 MG TAB PO SCH (09:00)
[2017-06-18] MEDS: METOPROLOL 25 MG TAB PO SCH (10:08)
[2017-06-18] MEDS: FOLIC ACID 1 MG TAB PO SCH (10:08)
[2017-06-18] MEDS: THIAMINE 100 MG TAB PO SCH (10:09)
[2017-06-18] MEDS: LISINOPRIL 20 MG TAB PO SCH (10:09)
[2017-06-18] MEDS: MULTIVITAMIN/MINERALS 1 TAB PO SCH (10:09)
[2017-06-18 10:18] LABS: POTASSIUM 3.6 mmol/L (3.5-5.1)
[2017-06-18 10:19] LABS: ANION GAP 13.8 (8-16); CARBON DIOXIDE 26.8 mmol/L (21-32); CREATININE 0.9 mg/dL (0.7-1.3)
[2017-06-18] MEDS ORDERED: METOPROLOL 25 MG TAB PO SCH ×2 (11:15→21:00)
[2017-06-18 11:56] VITALS: BP 165/105
[2017-06-18] MEDS: CHLORHEXADINE GLUC 2% CLOTH TP SCH (14:30)
[2017-06-18] MEDS ORDERED: amLODIPine 5 MG TAB PO SCH (14:30)
[2017-06-18] MEDS ORDERED: ENALAPRILAT 2.5 MG/2 ML VIAL IVP PRN (15:10)
[2017-06-18] MEDS ORDERED: FOLI1TAB90 PO (15:12)
[2017-06-18] MEDS ORDERED: ATI2I IVP (15:12)
[2017-06-18] MEDS ORDERED: THIA-8 PO (15:12)
[2017-06-18] MEDS ORDERED: LORA-476 PO (15:12)
[2017-06-18] MEDS ORDERED: AMLO5TAB4 PO (15:12)
[2017-06-18] MEDS ORDERED: MULT-1736 PO (15:12)
[2017-06-18] MEDS ORDERED: METO25TA PO (15:14)
[2017-06-18] MEDS ORDERED: LISI-420 PO (15:17)
[2017-06-18] MEDS ORDERED: ATOR10TA51 PO (15:28)
[2017-06-18] MEDS ORDERED: ASPI81CT89 PO (15:28)
[2017-06-18 15:59] VITALS: BP 145/98
[2017-06-18 20:20] VITALS: BP 145/89
[2017-06-19] MEDS ORDERED: amLODIPine 5 MG TAB PO SCH (09:00)
== END 2017-06-18 22:20 | DRG 299 ==
LOC: MED 11:08 → MTU 15:20
PROVIDERS: ADMIT Family Medicine Sports Medicine; ATTEND Family Medicine Sports Medicine
DX: E11.51 Type 2 diabetes mellitus with diabetic peripheral angiopathy without gangrene (principal); G92 Toxic encephalopathy; R56.9 Unspecified convulsions; K76.0 Fatty (change of) liver, not elsewhere classified; S91.301A Unspecified open wound, right foot, initial encounter; F10.239 Alcohol dependence with withdrawal, unspecified; J98.11 Atelectasis; I70.203 Unspecified atherosclerosis of native arteries of extremities, bilateral legs; I10 Essential (primary) hypertension; J45.909 Unspecified asthma, uncomplicated; I25.10 Atherosclerotic heart disease of native coronary artery without angina pectoris; R74.0 Nonspecific elevation of levels of transaminase and lactic acid dehydrogenase [LDH]; R79.1 Abnormal coagulation profile; R00.0 Tachycardia, unspecified; I16.0 Hypertensive urgency; F12.90 Cannabis use, unspecified, uncomplicated; S91.302A Unspecified open wound, left foot, initial encounter; M20.42 Other hammer toe(s) (acquired), left foot; M20.41 Other hammer toe(s) (acquired), right foot; Z59.0 Homelessness; Y93.89 Activity, other specified; Y92.89 Other specified places as the place of occurrence of the external cause; Y99.8 Other external cause status; Z87.891 Personal history of nicotine dependence
CPT/HCPCS: 36415; 71045; 71275; 76700; 80048; 80053; 80305; 81003; 82150; 82550; 83036; 83690; 83735; 83880; 84100; 84436; 84439; 84443; 84479; 84484; 85025; 85379; 85610; 85651; 86140; 87081; 93005; 93925; 93970; 93971; 97110; 97140; 97530; 99285; G0482; J2060; J3475; J3490; J7030; Q0092; Q9967

== ENCOUNTER 2017-08-07 22:33 | Inpatient (IN) | payer OTHER ==
[~2017-08-07] VITALS: Ht 180.3 cm; Wt 81.2 kg
[~2017-08-07 22:33] MED LIST changes: -ACET-1182 PO; -ACET-9529 PO; +AMLO5TAB4 PO; +ASPI81CT89 PO; -ASPI81CT95 PO; +ATOR10TA51 PO; -ATOR20TA40 PO; -DOCU-299 PO; -LACT10CA PO; +LISI-420 PO; -MAG400 PO; +METO25TA PO; -ONDA2SOL45 IVP; -PANT40PD7 IVP; -PHOS1PDR4 PO
--- NOTE | 2017-08-07 22:33 | NUR ---
PT BIB [facility]. TAKEN TO BED 3
[2017-08-07 22:41] VITALS: BP 183/105
[2017-08-07] MEDS ORDERED: MULTIVITAMIN-12 10 ML, THIAMINE 100 MG, MAGNESIUM SULFATE 50% 2,000 MG, FOLIC ACID 5 MG... IV ONE ×5 (23:07)
--- NOTE | 2017-08-07 23:09 | NUR ---
JUICE PROVIDED TO PT AT BEDSIDE.
[2017-08-07] MEDS ORDERED: MULTIVITAMIN-12 10 ML VIAL IV ONE (23:17)
[2017-08-07] MEDS ORDERED: MAGNESIUM SULFATE 50% 1000 MG/2 ML VIAL IV ONE (23:17)
[2017-08-07] MEDS ORDERED: FOLIC ACID 5 MG/ML SYR ONE (23:17)
[2017-08-07] MEDS ORDERED: THIAMINE 200 MG/2 ML VIAL ONE (23:17)
--- NOTE | 2017-08-08 01:08 | NUR ---
PT VOIDED 1000MLS OF YELLOW URINE SAMPLE COLLECTED FOR LAB WOOD ROOM SUPERVISOR
[2017-08-08 01:15] LABS: BASOPHILS # (AUTO) 0.1 K/uL (0.00-0.22); EOSINOPHILS % (AUTO) 0.2 % (0.0-4.0); HEMATOCRIT 30.4 % (36-52); HEMOGLOBIN 9.9 g/dL (12.0-18.0); LYMPHOCYTES # (AUTO) 0.3 K/uL (2.0-11.5); LYMPHOCYTES % (AUTO) 6.5 % (20.5-51.1); MEAN CORPUSCULAR HEMOGLOBIN 32 pg (27-31); MEAN CORPUSCULAR HGB CONC 33 g/dL (33-37); MEAN CORPUSCULAR VOLUME 99 fL (80-94); MONOCYTES # (AUTO) 0.1 K/uL (0.8-1.0); MONOCYTES % (AUTO) 2.3 % (1.7-9.3); NEUTROPHILS # (AUTO) 3.9 K/uL (1.8-7.7); PLATELET COUNT (AUTO) 130 K/uL (140-450); RED BLOOD CELL COUNT(AUTO) 3.07 MIL/uL (4.20-6.10); RED CELL DISTRIBUTION WIDTH 13.2 % (11.6-13.7); WHITE BLOOD COUNT (AUTO) 4.4 K/uL (4.8-10.8)
--- NOTE | 2017-08-08 01:28 | NUR ---
PATIENT REFUSED EKG PER EMT BRITTNEY, WILL ASK AGAIN LATER
[2017-08-08 01:34] LABS: ALBUMIN 1.6 g/dL (3.4-5.0); CARBON DIOXIDE 17.8 mmol/L (21-32); CREATININE 0.6 mg/dL (0.7-1.3); TOTAL BILIRUBIN 0.9 mg/dL (0.0-1.0)
[2017-08-08 01:51] LABS: POTASSIUM 1.8 mmol/L (3.5-5.1)
--- NOTE | 2017-08-08 01:54 | NUR ---
CRITICAL LAB CALLED POTASSIUM 1.[address] KERNS JUICE GIVEN F/S TO BE RETAKEN AWAITING NEW ORDERS FROM
[2017-08-08] MEDS ORDERED: POTASSIUM CHLORIDE 20% 40 MEQ/15 ML UDC PO ONE (01:55)
[2017-08-08] MEDS ORDERED: KCL 20 MEQ/WATER INJ PREMIX 200 ML IV ONE (01:55)
--- NOTE | 2017-08-08 01:57 | NUR ---
Dr. Corrigan evaluating patient.
--- NOTE | 2017-08-08 03:34 | NUR ---
RETAKE OF CHRISTOPHER 57 AT 0330. PT GIVEN MORE JUICE AND MEAL ORDERED
[2017-08-08 03:43] LABS: MAGNESIUM 9.6 mg/dL (1.8-2.4)
--- NOTE | 2017-08-08 03:46 | NUR ---
BLOOD LABS DRAWN FROM SAME ARM WHERE BANANA BAG WAS RUNNING, PER ER TO REPEAT MG LEVELS IN THE MORNING.
--- NOTE | 2017-08-08 03:55 | NUR ---
PT RESTING IN BED, AWAKE, ON CROSSCUTTER ROLLED GLASS, NSR, DENIES ANY PAIN , WILL CONT TO MONITOR
[2017-08-08] MEDS ORDERED: LORazepam 2 MG/ML VIAL IVP PRN (04:05)
[2017-08-08] MEDS: DEXT 5% /NACL 0.9% 1,000 ML IV SCH ×2 (04:10→14:10)
[2017-08-08] MEDS ORDERED: ACETAMINOPHEN 325 MG TAB PO PRN (04:10)
[2017-08-08] MEDS ORDERED: ONDANSETRON 4 MG/2 ML VIAL IVP PRN (04:10)
[2017-08-08] MEDS ORDERED: MORPHINE SULFATE 2 MG/ML SYR IVP PRN (04:10)
[2017-08-08] MEDS ORDERED: HYDROcodone/APAP 5/325 MG 1 TAB TAB PO PRN (04:10)
--- NOTE | 2017-08-08 04:46 | NUR ---
Patient will be admitted to care of [facility]. Admited to [facility]. Will go to [id number]. Belongings list completed. Report to BRYANT SUNSHINE.
--- NOTE | 2017-08-08 05:03 | NUR ---
RECEIVED FROM LOCAL TELEPHONE OPERATOR PER FAITH AWAKE AND ALERT. NO SOB. DENIES ANY PAIN AT THIS TIME. SCAB TO RIGHT BIG TOE NOTED. NO EDEMA. CTAB. DX. PANCYTOPENIA AND ELECTROLYTE IMBALANCE. CALL LIGHT USE EXPLAINED. RAPID RESPONSE EXPLAINED. PT. ABLE TO VERBALIZE NEEDS WELL. RECEIVED WITH BANANA BAG AND KRIDER INFUSING. AFEBRILE. TELEMETRY MONITORING. IVF SITE TO RAC #20 . ISOLATION PRECAUTIONS WILL BE OBSERVED RT HX. MRSA NARES. BED ALARM ON.
[2017-08-08 06:14] VITALS: BP 148/89
--- NOTE | 2017-08-08 06:52 | NUR ---
PATIENT HAS BEEN SCREENED AND CATEGORIZED LOW NUTRITION RISK. PATIENT WILL BE SEEN WITHIN 7 DAYS OF ADMISSION. 08/14/17 LUIZ BIANCHI MS, RDN Addendum: 08/10/17 at [address] PATIENT HAS BEEN RESCREENED AND RECATEGORIZED MODERATE NUTRITION RISK. PATIENT WILL BE SEEN WITHIN 3-5 DAYS OF ADMISSION. 08/10/17 - 08/12/[address]
--- NOTE | 2017-08-08 07:30 | NUR ---
RECEIVED REPORT FROM WOOD PREPARATION SUPERVISOR NURSE, PT IS RESTING IN BED, AAOX3, FORGETFUL, PT HAS IV ON THE RIGHT AC, PATENT, INTACT, FLUSHING WELL, NO S/S OF RESPIRATORY DISTRESS OR DISCOMFORT NOTED, DISCUSSED PLAN OF CARE WITH PT, PT VERBALIZED UNDERSTANDING, CALL LIGHT WITHIN REACH, WILL CONTINUE TO MONITOR.
[2017-08-08 08:00] VITALS: BP 185/103
[2017-08-08] MEDS: FOLIC ACID 1 MG TAB PO SCH (08:11)
[2017-08-08] MEDS: ASPIRIN 81 MG TAB.CHEW PO SCH (08:11)
[2017-08-08] MEDS: THIAMINE 100 MG TAB PO SCH (08:12)
[2017-08-08] MEDS: amLODIPine 5 MG TAB PO SCH (08:12)
[2017-08-08] MEDS: LISINOPRIL 20 MG TAB PO SCH (08:13)
[2017-08-08] MEDS: METOPROLOL 25 MG TAB PO SCH ×2 (08:13→20:51)
[2017-08-08] MEDS: MULTIVITAMIN/MINERALS 1 TAB PO SCH (08:13)
--- NOTE | 2017-08-08 08:13 | NUR ---
DUE MEDICATION GIVEN, PT TOLERATED WELL, NO SIGNS OF DISCOMFORT, CALL LIGHT WITHIN REACH, WILL CONTINUE TO MONITOR.
--- NOTE | 2017-08-08 08:30 | NUR ---
INFORMED DR. DECKER THE PATIENT'S BLOOD PRESSURE WAS 185/103, HR:129. PER DR. DECKER HE WILL MAKE SOME ADJUSTMENTS TO HIS MEDICATIONS AND PUT IN ORDER FOR PRN MEDS.
[2017-08-08] MEDS ORDERED: cloNIDine 0.1 MG TAB PO PRN (08:40)
[2017-08-08] MEDS ORDERED: POTASSIUM PHOSPHATE 15 MM in NACL 0.9% 250 ML IV ONE (08:40)
[2017-08-08] MEDS ORDERED: NON-FORMULARY ITEM (Atorvastatin Calcium 1 TAB) PO SCH (09:00)
[2017-08-08] MEDS: ATORVASTATIN 20 MG TAB PO SCH (09:32)
[2017-08-08 09:45] LABS: BARBITURATE, URINE NEG. ng/ml (NEG <=200); BENZODIAZEPINE, URINE NEG. ng/mL (NEG <=200); CANNABINOID, URINE NEG. ng/mL (NEG <=50); COCAINE, URINE NEG. ng/mL (NEG <=300); OPIATE, URINE NEG. ng/mL (NEG <=2000); PHENCYCLIDINE SCREEN,URINE NEG. ng/mL (NEG <=25)
--- NOTE | 2017-08-08 10:20 | NUR ---
PT RESTING IN BED, NO S/S OF RESPIRATORY DISTRESS OR DISCOMFORT NOTED, CALL LIGHT WITHIN REACH.
[2017-08-08 12:00] VITALS: BP 149/105
[2017-08-08] MEDS ORDERED: ATORVASTATIN 20 MG TAB PO SCH (12:00)
[2017-08-08] MEDS: LORazepam 1 MG TAB PO SCH ×2 (12:11→20:51)
--- NOTE | 2017-08-08 12:27 | NUR ---
SPOKE TO DR. DECKER. I LET HIM KNOW THE PATIENT WAS RESTLESS AND BANGING HIS FEET ON THE BED. PT PULLED HIS IV OUT. PER DR. DECKER OK TO GIVE ATIVAN 2MG IM, ONCE.
[2017-08-08] MEDS ORDERED: LORazepam 2 MG/ML VIAL IM/IVP SCH (12:40)
--- NOTE | 2017-08-08 14:00 | NUR ---
NEW IV INSERTED ON THE LEFT FA, PATIENT TOLERATED WELL, PT RESTING IN BED, CALL LIGHT WITHIN REACH, WILL CONTINUE TO MONITOR.
[2017-08-08 16:00] VITALS: BP 128/78
--- NOTE | 2017-08-08 16:10 | NUR ---
PT SLEEPING IN BED AT THIS TIME, CALL LIGHT IS WITHIN REACH.
--- NOTE | 2017-08-08 17:15 | NUR ---
PT RESTING IN BED WATCHING TV, CALL LIGHT IS WITHIN REACH.
--- NOTE | 2017-08-08 19:20 | NUR ---
ENDORSED PT TO EXPANDER MACHINE OPERATOR NURSE FOR CONTINUITY OF CARE. PT STABLE AT THIS TIME.
--- NOTE | 2017-08-08 19:30 | NUR ---
RECEIVED FROM AM RN IN BED SITTING UP. WATCHING TV, A/O X3 , CALL LIGHT WITH IN REACH AND WITH GOOD AFFECT. TELEMETRY MONITORING. ISOLATION PRECAUTION OBSERVED RT HX. MRSA NARES. NO SOB. DENIES ANY PAIN AT THIS TIME. PT. CARE PLANS FOR THE NIGHT DISCUSSED WITH HIM. PT. HAS EPISODES OF FORGETFULNESS. BED ALARM ON.
[2017-08-08 20:15] VITALS: BP 138/73
[2017-08-09] MEDS: DEXT 5% /NACL 0.9% 1,000 ML IV SCH ×3 (00:23→19:56)
--- NOTE | 2017-08-09 00:24 | NUR ---
PT. SLEEPING AT THIS TIME. NO RESTLESSNESS NOTED. BED ALARM ON. IVF SITE INTACT AND NO INFILTRATION NOTED.
[2017-08-09 00:34] VITALS: BP 119/63
[2017-08-09 01:07] LABS: MAGNESIUM 1.7 mg/dL (1.8-2.4); PHOSPHORUS 2.6 mg/dL (2.5-4.9)
--- NOTE | 2017-08-09 04:30 | NUR ---
PT. ASSISTED TO RESTROOM TO GO BM. ASSISTED BY CNAS. HAD A BIG BM. DENIES PAIN. ABLE TO VERBALIZE SIMPLE NEEDS. TELEMETRY MONITORING. ALER T AND AWAKE. ORIENTED X3 WITH BOUTS OF FORGETFULNESS. BED ALARM ALWAYS ON. CALL LIGHT WITH IN REACH.
[2017-08-09 04:41] VITALS: BP 144/90
[2017-08-09] MEDS: LORazepam 1 MG TAB PO SCH ×3 (05:37→20:39)
--- NOTE | 2017-08-09 05:38 | NUR ---
AWAKE AT THIS TIME AND REMINDED TO BE NPO RT PROCEDURE THIS A.M. "OK"
[2017-08-09 06:59] LABS: BASOPHILS # (AUTO) 0.4 K/uL (0.00-0.22); BASOPHILS % (AUTO) 4.8 % (0.0-2.0); EOSINOPHILS # (AUTO) 0.1 K/uL (0-0.4); EOSINOPHILS % (AUTO) 0.9 % (0.0-4.0); HEMATOCRIT 41.9 % (36-52); HEMOGLOBIN 14.1 g/dL (12.0-18.0); LYMPHOCYTES # (AUTO) 1.8 K/uL (2.0-11.5); LYMPHOCYTES % (AUTO) 24.2 % (20.5-51.1); MEAN CORPUSCULAR HEMOGLOBIN 33 pg (27-31); MEAN CORPUSCULAR HGB CONC 34 g/dL (33-37); MEAN CORPUSCULAR VOLUME 97 fL (80-94); MONOCYTES # (AUTO) 0.5 K/uL (0.8-1.0); MONOCYTES % (AUTO) 6.9 % (1.7-9.3); NEUTROPHILS # (AUTO) 4.5 K/uL (1.8-7.7); NEUTROPHILS % (AUTO) 63.2 % (42.2-75.2); PLATELET COUNT (AUTO) 159 K/uL (140-450); RED BLOOD CELL COUNT(AUTO) 4.31 MIL/uL (4.20-6.10); RED CELL DISTRIBUTION WIDTH 12.9 % (11.6-13.7); WHITE BLOOD COUNT (AUTO) 7.3 K/uL (4.8-10.8)
--- NOTE | 2017-08-09 07:20 | NUR ---
RECEIVED REPORT FROM DISPENSARY ATTENDANT NURSE. PATIENT LYING IN BED SLEEPING, AROUSABLE BY VOICE. NO DISTRESS NOTED. DENIES ANY PAIN. RESPIRATIONS EVEN, UNLABORED, ON ROOM AIR. AAOX4, CALM, COOPERATIVE, SKIN COLOR APPROPRIATE TO ETHNICITY, WARM TO TOUCH. IV SITE INTACT, PATENT, AND INFUSING IVF PER ORDERS. SKIN IS INTACT THROUGHOUT BODY. ABDOMEN SOFT, NON-DISTENDED. LUNGS CTA ON ALL LOBES. ABLE TO AMBULATE WITH ASSISTANCE. REVIEWED PLAN OF CARE WITH PATIENT. PATIENT VERBALIZED UNDERSTANDING. SAFETY MEASURES IN PLACE, CALL LIGHT WITHIN REACH. WILL CONTINUE TO MONITOR.
[2017-08-09 07:43] LABS: ALBUMIN 3.3 g/dL (3.4-5.0); ANION GAP 12.2 (8-16); CARBON DIOXIDE 28.7 mmol/L (21-32); CREATININE 0.9 mg/dL (0.7-1.3); MAGNESIUM 1.6 mg/dL (1.8-2.4); PHOSPHORUS 2.9 mg/dL (2.5-4.9); POTASSIUM 3.9 mmol/L (3.5-5.1); TOTAL BILIRUBIN 1.1 mg/dL (0.0-1.0)
[2017-08-09 08:00] VITALS: BP 135/89
--- NOTE | 2017-08-09 08:39 | NUR ---
RADIOLOGIST AT BEDSIDE PERFORMING US OF ABD. WILL CONTINUE TO MONITOR.
[2017-08-09] MEDS ORDERED: ATORVASTATIN 20 MG TAB PO SCH (09:00)
--- NOTE | 2017-08-09 09:30 | NUR ---
PATIENT LYING DOWN IN BED SLEEPING, NO DISTRESS NOTED. DENIES ANY PAIN. CONDITION UNCHANGED. SAFETY MEASURES IN PLACE, CALL LIGHT WITHIN REACH. WILL CONTINUE TO MONITOR.
[2017-08-09] MEDS: amLODIPine 5 MG TAB PO SCH (10:18)
[2017-08-09] MEDS: ASPIRIN 81 MG TAB.CHEW PO SCH (10:18)
[2017-08-09] MEDS: FOLIC ACID 1 MG TAB PO SCH (10:19)
[2017-08-09] MEDS: MULTIVITAMIN/MINERALS 1 TAB PO SCH (10:19)
[2017-08-09] MEDS: METOPROLOL 25 MG TAB PO SCH ×2 (10:20→20:39)
[2017-08-09] MEDS: ATORVASTATIN 20 MG TAB PO SCH (10:20)
[2017-08-09] MEDS: THIAMINE 100 MG TAB PO SCH (10:20)
[2017-08-09] MEDS: LISINOPRIL 20 MG TAB PO SCH (10:20)
--- NOTE | 2017-08-09 10:24 | NUR ---
PATIENT LYING DOWN IN BED SLEEPING, AROUSABLE BY VOICE. NO DISTRESS NOTED. DENIES ANY PAIN AT THIS TIME. SCHEDULED MEDICATIONS DUE GIVEN. SAFETY MEASURES IN PLACE, CALL LIGHT WITHIN REACH. WILL CONTINUE TO MONITOR.
[2017-08-09 12:00] VITALS: BP 155/89
[2017-08-09] MEDS ORDERED: MAG SULF 2000 MG/WATER PREMIX 50 ML IV SCH (13:29)
--- NOTE | 2017-08-09 13:45 | NUR ---
PATIENT ABLE TO AMBULATE TO BATHROOM AND BACK TO BED WITH STABLE GAIT. NO DISTRESS NOTED. DENIES ANY PAIN. SCHEDULED MEDICATIONS DUE GIVEN. SAFETY MEASURES IN PLACE, CALL LIGHT WITHIN REACH. WILL CONTINUE TO MONITOR.
[2017-08-09 16:00] VITALS: BP 154/95
--- NOTE | 2017-08-09 16:19 | NUR ---
PATIENT LYING DOWN IN BED SLEEPING, AROUSABLE BY VOICE. NO DISTRESS NOTED. CONDITION UNCHANGED. WILL CONTINUE TO MONITOR.
[2017-08-09] MEDS ORDERED: MUPIROCIN 2% OINT 22 GM TUBE TP SCH (17:00)
[2017-08-09] MEDS ORDERED: CHLORHEXADINE GLUC 2% CLOTH TP SCH (17:00)
--- NOTE | 2017-08-09 18:00 | NUR ---
PATIENT SITTING IN BED WATCHING TV. NO DISTRESS NOTED. DENIES ANY PAIN. CONDITION UNCHANGED. SAFETY MEASURES IN PLACE, CALL LIGHT WITHIN REACH. WILL CONTINUE TO MONITOR.
--- NOTE | 2017-08-09 19:25 | NUR ---
GAVE REPORT TO AUTOMOBILE SERVICE STATION MECHANIC NURSE FOR CONTINUITY OF CARE. PATIENT IN STABLE CONDITION.
--- NOTE | 2017-08-09 19:30 | NUR ---
RECEIVED PT FROM DAY SHIFT NURSE SHELL-BRYANT. PT IN BED RESTING. AOX4, AMBULATORY. LEFT FA #22G @ 100ML/HR DEXTROSE/SODIUM CHLORIDE 5%-0.9%. ON ROOM AIR. NO S/S OF RESPIRATORY DISTRESS OR DISCOMFORT AT THIS TIME. CONTACT ISOLATION FOR MRSA NARES. CALL LIGHT WITHIN REACH. BED IN LOWEST POSITION. WILL CONTINUE TO MONITOR.
[2017-08-09 20:00] VITALS: BP 145/85
--- NOTE | 2017-08-09 21:00 | NUR ---
MEDICATIONS TOLERATED WELL. AMBULATED PT AT HIS REQUEST TO STRETCH OUT HIS LEGS. RETURNED PT BACK INTO BED. NO S/S OF RESPIRATORY DISTRESS OR DISCOMFORT. BED IN LOWEST POSITION. CALL LIGHT WITHIN REACH. WILL CONTINUE TO MONITOR.
[2017-08-10] VITALS: BP 139/92
--- NOTE | 2017-08-10 00:05 | NUR ---
PT RESTING IN BED. VITAL SIGNS TAKEN AND TOLERATED WELL. CALL LIGHT WITHIN REACH. BED IN LOWEST POSITION. WILL CONTINUE TO MONITOR.
--- NOTE | 2017-08-10 02:35 | NUR ---
PT SLEEPING IN BED. NO S/S OF RESPIRATORY DISTRESS OR DISCOMFORT NOTED AT THIS TIME. BED IN LOWEST POSITION. CALL LIGHT WITHIN REACH. WILL CONTINUE TO MONITOR.
[2017-08-10 04:00] VITALS: BP 147/88
[2017-08-10] MEDS: LORazepam 1 MG TAB PO SCH (05:30)
--- NOTE | 2017-08-10 05:31 | NUR ---
MEDICATIONS TOLERATED WELL. VITAL SIGNS TOLERATED WELL. NO S/S OF RESPIRATORY DISTRESS OR DISCOMFORT NOTED. CALL LIGHT WITHIN REACH. WILL CONTINUE TO MONITOR.
[2017-08-10] MEDS: DEXT 5% /NACL 0.9% 1,000 ML IV SCH (06:10)
--- NOTE | 2017-08-10 06:35 | NUR ---
PT RESTING IN BED. NO S/S OF RESPIRATORY DISTRESS OR DISCOMFORT NOTED AT THIS TIME. CALL LIGHT WITHIN REACH. WILL CONTINUE TO MONITOR.
--- NOTE | 2017-08-10 07:10 | NUR ---
ENDORSED PT TO DAY SHIFT NURSE OLGA LIDIA. PT IN STABLE CONDITION AT THIS TIME.
--- NOTE | 2017-08-10 07:11 | NUR ---
RECEIVED REPORT FROM PLAYGROUND WORKER RN. PATIENT IS AAOX3, NO SIGNS AND SYMPTOMS OF ACUTE DISTRESS NOTED AT THIS TIME. PATIENT HAS IV TO LEFT FA 22 G, INFUSING D5NS AT 100 ML/HR. INFUSING WELL, SITE IS CLEAN AND PATENT. DISCUSSED PLAN OF CARE WITH PATIENT AND HE VERBALIZED UNDERSTANDING. SAFETY MEASURES ARE IN PLACE. BED IN LOWEST POSITION, SIDE RAILS UP X2, CALL LIGHT WITHIN REACH. WILL CONTINUE TO MONITOR.
[2017-08-10 08:00] VITALS: BP 164/104
[2017-08-10] MEDS: amLODIPine 5 MG TAB PO SCH (08:57)
[2017-08-10] MEDS: THIAMINE 100 MG TAB PO SCH (08:57)
[2017-08-10] MEDS: METOPROLOL 25 MG TAB PO SCH (08:57)
[2017-08-10] MEDS: LISINOPRIL 20 MG TAB PO SCH (08:58)
[2017-08-10] MEDS: ASPIRIN 81 MG TAB.CHEW PO SCH (08:58)
[2017-08-10] MEDS: FOLIC ACID 1 MG TAB PO SCH (08:58)
[2017-08-10] MEDS: ATORVASTATIN 20 MG TAB PO SCH (08:58)
[2017-08-10] MEDS: MULTIVITAMIN/MINERALS 1 TAB PO SCH (08:58)
[2017-08-10 12:00] VITALS: BP 131/69
[2017-08-10] MEDS ORDERED: LISI-420 PO (12:27)
[2017-08-10] MEDS ORDERED: ASPI81CT89 PO (12:27)
[2017-08-10] MEDS ORDERED: FOLI1TAB90 PO (12:27)
[2017-08-10] MEDS ORDERED: ATOR10TA51 PO (12:27)
[2017-08-10] MEDS ORDERED: MULT-1736 PO (12:27)
[2017-08-10] MEDS ORDERED: AMLO5TAB4 PO (12:27)
[2017-08-10] MEDS ORDERED: METO25TA PO (12:27)
[2017-08-10] MEDS ORDERED: BACTO TP (12:27)
[2017-08-10] MEDS ORDERED: THIA-8 PO (12:27)
--- NOTE | 2017-08-10 13:00 | NUR ---
DISCHARGE ORDER IS IN PLACE. WENT OVER DISCHARGE INSTRUCTIONS WITH PATIENT, INFORMED HIM THAT HE HAS PRESCRIPTIONS IN HIS DISCHARGE PACKET. ALSO LET HIM KNOW TO FOLLOW UP WITH PCP. ADVISED HIM IF S/S WORSEN OR OTHERS DEVELOP TO SEEK EMERGENCY MEDICAL ATTENTION. PATIENT VERBALIZED UNDERSTANDING. HAS ALL BELONGINGS, NEEDED SHOES AND A NEW SWEAT SHIRT. REMOVED IV FROM SITE AND PATIENT TOLERATED WELL. CATHETER INTACT. NO SIGNS AND SYMPTOMS OF ACUTE DISTRESS AT THIS TIME. WILL WALK OUT WITH PATIENT.
[2017-08-10 15:10] LABS: FOLIC ACID > 20.00 ng/mL (>3.0)
== END 2017-08-10 13:00 | disposition home or self-care (01) | DRG 640 ==
LOC: MED 22:33 → MTU 08-08 04:07
PROVIDERS: ADMIT Preventive Medicine Preventive Medicine/Occupational Environmental Medicine; ATTEND Preventive Medicine Preventive Medicine/Occupational Environmental Medicine
DX: E16.2 Hypoglycemia, unspecified (principal); G93.41 Metabolic encephalopathy; E43 Unspecified severe protein-calorie malnutrition; D61.818 Other pancytopenia; E87.0 Hyperosmolality and hypernatremia; R17 Unspecified jaundice; F10.229 Alcohol dependence with intoxication, unspecified; E83.39 Other disorders of phosphorus metabolism; E83.41 Hypermagnesemia; E87.6 Hypokalemia; E83.51 Hypocalcemia; E78.5 Hyperlipidemia, unspecified; I10 Essential (primary) hypertension; Y90.6 Blood alcohol level of 120-199 mg/100 ml; E83.42 Hypomagnesemia; I49.1 Atrial premature depolarization; Z79.82 Long term (current) use of aspirin; Z79.899 Other long term (current) drug therapy; Z68.25 Body mass index [BMI] 25.0-25.9, adult; Z22.322 Carrier or suspected carrier of Methicillin resistant Staphylococcus aureus
CPT/HCPCS: 36415; 71045; 76700; 80048; 80053; 80305; 82607; 82746; 82948; 83690; 83735; 84100; 84484; 85025; 86702; 87081; 93005; A9153; G0482; J2060; J3411; J3475; J3480; J3490; J7030; J7042; Q0092

== ENCOUNTER 2017-09-09 15:54 | Inpatient (IN) | payer OTHER ==
[~2017-09-09] VITALS: Ht 180.3 cm; Wt 119.3 kg
[~2017-09-09 15:54] MED LIST changes: -ATI2I IVP; +BACTO TP; -THIA-8 PO; +THIA100T31 PO
[2017-09-09 16:00] VITALS: BP 160/81
[2017-09-09] MEDS ORDERED: ATOR40TA PO (19:12)
[2017-09-09 19:27] LABS: MEAN CORPUSCULAR HEMOGLOBIN 33 pg (27-31); MEAN CORPUSCULAR HGB CONC 34 g/dL (33-37); MEAN CORPUSCULAR VOLUME 95.8 fL (80-94); RED BLOOD CELL COUNT(AUTO) 4.28 MIL/uL (4.20-6.10); RED CELL DISTRIBUTION WIDTH 14.4 % (11.6-13.7); WHITE BLOOD COUNT (AUTO) 15.9 K/uL (4.8-10.8)
[2017-09-09 19:40] LABS: CHOL/HDL RATIO 12.8 (1-4.5)
[2017-09-09 19:53] LABS: EOSINOPHILS % (MANUAL) 1 % (0-4); LYMPHOCYTES % (MANUAL) 2 % (20-46); MONOCYTES % (MANUAL) 4 % (5-12); PLATELET COUNT (AUTO) 43 K/uL (140-450)
[2017-09-09 20:02] LABS: ALBUMIN 2.6 g/dL (3.4-5.0); ANION GAP 15.2 (8-16); CARBON DIOXIDE 21.1 mmol/L (21-32); CREATININE 1.7 mg/dL (0.7-1.3); POTASSIUM 3.3 mmol/L (3.5-5.1); TOTAL BILIRUBIN 4.1 mg/dL (0.0-1.0)
[2017-09-09 20:25] LABS: CREATINE KINASE MB 13.9 ng/mL (0-3.6)
[2017-09-09] MEDS ORDERED: NACL 0.9% 1,000 ML IV ONE (20:30)
[2017-09-09] MEDS ORDERED: ASPIRIN 325 MG TAB ONE (20:52)
[2017-09-09] MEDS ORDERED: ACETAMINOPHEN 325 MG TAB PO PRN (23:10)
[2017-09-09] MEDS ORDERED: ONDANSETRON 4 MG/2 ML VIAL IVP PRN (23:10)
[2017-09-09] MEDS ORDERED: HYDROcodone/APAP 7.5/325 MG 1 TAB PO PRN (23:10)
[2017-09-09] MEDS ORDERED: LORazepam 2 MG/ML VIAL IVP PRN (23:15)
[2017-09-09] MEDS ORDERED: POTASSIUM CHLORIDE 10 MEQ TABER PO ONE (23:20)
[2017-09-09] MEDS ORDERED: NACL 0.9% 2,000 ML IV ONE (23:20)
[2017-09-09 23:45] LABS: FREE T4 (FREE THYROXINE) 1.53 ng/dL (0.76-1.46); MAGNESIUM 1.5 mg/dL (1.8-2.4); PHOSPHORUS 2.7 mg/dL (2.5-4.9); THYROID STIMULATING HORMONE 3.34 uIU/mL (0.34-3.74)
[2017-09-09] MEDS ORDERED: THIAMINE 200 MG/2 ML VIAL IM ONE (23:55)
[2017-09-10] VITALS (76 sets, daily range): BP systolic 58–180; BP diastolic 23–132
[2017-09-10] MEDS ORDERED: LEVOFLOXACIN 750 MG/D5W PREMIX 150 ML IV SCH (00:05)
[2017-09-10] MEDS ORDERED: SUCRALFATE 1 GM TAB PO ONE (01:05)
[2017-09-10] MEDS: SUCRALFATE 1 GM TAB PO SCH ×2 (01:09→09:00)
[2017-09-10] MEDS ORDERED: hePARIN / DEXT 5% PREMIX 250 ML IV SCH (01:30)
[2017-09-10] MEDS ORDERED: HEPARIN PER PHARMACY MC PRN (01:30)
[2017-09-10] MEDS ORDERED: METOPROLOL 25 MG TAB PO ONE (01:30)
[2017-09-10 01:35] LABS: PROTHROMBIN TIME 11.5 secs (10.8-13.4)
[2017-09-10] MEDS ORDERED: CLINDAMYCIN 600 MG/4 ML VIAL ONE ×2 (01:41→05:42)
[2017-09-10] MEDS ORDERED: NACL 0.9% 1,000 ML IV SCH (02:55)
[2017-09-10] MEDS ORDERED: LORazepam 2 MG/ML VIAL IVP ONE (03:15)
[2017-09-10] MEDS ORDERED: NACL 0.9% 1,000 ML IV ONE ×3 (03:15→09:20)
[2017-09-10] MEDS ORDERED: LORazepam 1 MG TAB PO SCH (05:00)
[2017-09-10] MEDS ORDERED: CLINDAMYCIN 600 MG in DEXTROSE 5% 50 ML IV SCH (05:00)
[2017-09-10] MEDS ORDERED: ACETAMINOPHEN 325 MG SUPP RC PRN (05:25)
[2017-09-10] MEDS ORDERED: NOREPINEPHRINE 8 MG in DEXTROSE 5% 250 ML IV PRN (06:05)
[2017-09-10 06:22] LABS: CARBON DIOXIDE 16.6 mmol/L (21-32); CREATININE 2.6 mg/dL (0.7-1.3); POTASSIUM 3.6 mmol/L (3.5-5.1)
[2017-09-10 06:24] LABS: MAGNESIUM 1.3 mg/dL (1.8-2.4); PHOSPHORUS 1.3 mg/dL (2.5-4.9)
[2017-09-10 07:16] LABS: HEMATOCRIT 33.3 % (36-52); MEAN CORPUSCULAR HEMOGLOBIN 32 pg (27-31); MEAN CORPUSCULAR HGB CONC 33 g/dL (33-37); MEAN CORPUSCULAR VOLUME 96.9 fL (80-94); RED BLOOD CELL COUNT(AUTO) 3.44 MIL/uL (4.20-6.10); RED CELL DISTRIBUTION WIDTH 14.3 % (11.6-13.7); WHITE BLOOD COUNT (AUTO) 26.4 K/uL (4.8-10.8)
[2017-09-10 07:17] LABS: LYMPHOCYTES % (MANUAL) 13 % (20-46); MONOCYTES % (MANUAL) 12 % (5-12); PLATELET COUNT (AUTO) 20 K/uL (140-450)
[2017-09-10] MEDS ORDERED: NOREPINEPHRINE 8 MG in NACL 0.9% 250 ML IV PRN (07:17)
[2017-09-10] MEDS: DEXT 5% / NACL 0.45% 1,000 ML IV SCH ×2 (07:30→18:25)
[2017-09-10] MEDS: PIPER/TAZO 3.375GM/D5W PREMIX 50 ML IV SCH ×3 (07:41→20:29)
[2017-09-10] MEDS ORDERED: amLODIPine 5 MG TAB PO SCH (09:00)
[2017-09-10] MEDS ORDERED: DOCUSATE SODIUM 100 MG GELCAP PO SCH (09:00)
[2017-09-10] MEDS ORDERED: MAGNESIUM OXIDE 400 MG TAB PO SCH (09:00)
[2017-09-10] MEDS ORDERED: METOPROLOL 25 MG TAB PO SCH (09:00)
[2017-09-10] MEDS ORDERED: THIAMINE 100 MG TAB PO SCH (09:00)
[2017-09-10] MEDS ORDERED: LACTOBACILLUS RHAMNOSUS GG 1 EACH CAP PO SCH (09:00)
[2017-09-10] MEDS ORDERED: LISINOPRIL 20 MG TAB PO SCH (09:00)
[2017-09-10] MEDS ORDERED: FOLIC ACID 1 MG TAB PO SCH (09:00)
[2017-09-10] MEDS ORDERED: MULTIVITAMIN/MINERALS 1 TAB PO SCH (09:00)
[2017-09-10] MEDS ORDERED: ASPIRIN 325 MG TABEC PO SCH (09:00)
[2017-09-10] MEDS ORDERED: MULTIVITAMIN 1 TAB PO SCH (09:00)
[2017-09-10] MEDS ORDERED: ASPIRIN 81 MG TAB.CHEW PO SCH (09:00)
[2017-09-10] MEDS ORDERED: ETOMIDATE 20 MG/10 ML VIAL IVP ONE (09:20)
[2017-09-10] MEDS ORDERED: SUCCINYLCHOLINE CHLORIDE 200 MG/10 ML VIAL IVP ONE (09:20)
[2017-09-10] MEDS: DOPamine 400 MG/D5W PREMIX 250 ML IV PRN ×2 (09:50→17:10)
[2017-09-10 10:20] LABS: BARBITURATE, URINE NEG. ng/ml (NEG <=200); BENZODIAZEPINE, URINE NEG. ng/mL (NEG <=200); CANNABINOID, URINE NEG. ng/mL (NEG <=50); COCAINE, URINE NEG. ng/mL (NEG <=300); OPIATE, URINE NEG. ng/mL (NEG <=2000); PHENCYCLIDINE SCREEN,URINE NEG. ng/mL (NEG <=25)
[2017-09-10] MEDS ORDERED: LORazepam 2 MG/ML VIAL IVP SCH (10:20)
[2017-09-10 10:22] LABS: APPEARANCE,URINE SL CLOUDY (CLEAR); BILIRUBIN,URINE 2+ (NEGATIVE); COLOR,URINE ORANGE (YELLOW); LEUKOCYTE ESTERASE ,URINE TRACE (NEGATIVE); NITRITE, URINE NEGATIVE (NEGATIVE); PH,URINE 5.5 (5.0-9.0); UGLUCOSE NEGATIVE (NEGATIVE)
[2017-09-10 10:44] LABS: WBC,URINE 0-5 (RARE) /HPF (0-5)
[2017-09-10 10:45] LABS: RBC,URINE 0-5 (RARE) /HPF (0-5)
[2017-09-10 10:46] LABS: BLOOD, URINE TRACE (NEGATIVE)
[2017-09-10 10:47] LABS: HYALINE CASTS, URINE 0-10 /LPF (None Seen)
[2017-09-10] MEDS ORDERED: HYDRAGUARD CREAM TP PRN ×2 (12:55→13:35)
[2017-09-10] MEDS: NACL 0.9% IV PRN (15:15)
[2017-09-10] MEDS: NOREPINEPHRINE IV PRN (15:15)
[2017-09-10] MEDS ORDERED: MAG SULF 2000 MG/WATER PREMIX 100 ML IV SCH (17:00)
[2017-09-10] MEDS: SODIUM PHOS / POTASSIUM PHOS 1 PKT PDR NG SCH (17:25)
[2017-09-10] MEDS: DOCUSATE 100 MG/10 ML UDC NG SCH (20:29)
[2017-09-10] MEDS: ATORVASTATIN 20 MG TAB NG SCH (20:30)
[2017-09-10] MEDS: SUCRALFATE 1 GM TAB NG SCH (20:30)
[2017-09-10] MEDS ORDERED: ATORVASTATIN 20 MG TAB PO SCH (21:00)
[2017-09-10] MEDS ORDERED: METOPROLOL 25 MG TAB NG SCH (21:00)
[2017-09-10] MEDS: PANTOPRAZOLE 40 MG INJ VIAL IVP SCH (21:25)
[2017-09-10] MEDS ORDERED: AMIODARONE 150 MG in DEXTROSE 5% 100 ML IV ONE (23:30)
[2017-09-10] MEDS ORDERED: AMIODARONE 150 MG/3 ML VIAL IV ONE (23:36)
[2017-09-10] MEDS ORDERED: AMIODARONE 450 MG/9 ML VIAL IV ONE (23:37)
[2017-09-10] MEDS ORDERED: VASOPRESSIN 20 UNITS/ML VIAL ONE (23:54)
[2017-09-10] MEDS: AMIODARONE 450 MG in DEXTROSE 5% 250 ML IV SCH (23:55)
[2017-09-11] VITALS (106 sets, daily range): BP systolic 31–150; BP diastolic 18–87
[2017-09-11] MEDS: VASOPRESSIN 20 UNITS in NACL 0.9% 250 ML IV SCH ×3 (00:05→17:24)
[2017-09-11] MEDS: PIPER/TAZO 3.375GM/D5W PREMIX 50 ML IV SCH ×2 (04:53→12:40)
[2017-09-11] MEDS ORDERED: PHENYLEPHRINE 10 MG/ML VIAL ONE (06:01)
[2017-09-11] MEDS: DEXT 5% / NACL 0.45% 1,000 ML IV SCH (06:13)
[2017-09-11] MEDS: PHENYLEPHRINE 10 MG in NACL 0.9% 250 ML IV PRN ×2 (06:13→08:17)
[2017-09-11] MEDS ORDERED: MAG SULF 2000 MG/WATER PREMIX 100 ML IV SCH (08:15)
[2017-09-11] MEDS: PANTOPRAZOLE 40 MG INJ VIAL IVP SCH (08:43)
[2017-09-11] MEDS: DOCUSATE 100 MG/10 ML UDC NG SCH ×2 (08:43→21:07)
[2017-09-11] MEDS: LACTOBACILLUS RHAMNOSUS GG 1 EACH CAP NG SCH (08:43)
[2017-09-11] MEDS: THIAMINE 100 MG TAB NG SCH (08:43)
[2017-09-11] MEDS: SODIUM PHOS / POTASSIUM PHOS 1 PKT PDR NG SCH ×3 (08:44→16:16)
[2017-09-11] MEDS: FOLIC ACID 1 MG TAB NG SCH (08:44)
[2017-09-11] MEDS: MULTIVITAMIN/MINERALS 1 TAB NGT SCH (08:44)
[2017-09-11] MEDS: SUCRALFATE 1 GM TAB NG SCH ×2 (08:44→21:07)
[2017-09-11] MEDS: MAGNESIUM OXIDE 400 MG TAB NG SCH (08:44)
[2017-09-11 08:52] LABS: HEMATOCRIT 30.5 % (36-52); MEAN CORPUSCULAR HEMOGLOBIN 33 pg (27-31); MEAN CORPUSCULAR HGB CONC 33 g/dL (33-37); RED BLOOD CELL COUNT(AUTO) 3.08 MIL/uL (4.20-6.10)
[2017-09-11] MEDS ORDERED: DOCUSATE 100 MG/10 ML UDC GT SCH (09:00)
[2017-09-11] MEDS ORDERED: amLODIPine 5 MG TAB NG SCH (09:00)
[2017-09-11] MEDS ORDERED: ASPIRIN 81 MG TAB.CHEW NG SCH (09:00)
[2017-09-11] MEDS ORDERED: LISINOPRIL 20 MG TAB NG SCH (09:00)
[2017-09-11 09:07] LABS: ANION GAP 22.9 (8-16); CARBON DIOXIDE 15.3 mmol/L (21-32); POTASSIUM 4.2 mmol/L (3.5-5.1); WHITE BLOOD COUNT (AUTO) 23.6 K/uL (4.8-10.8)
[2017-09-11 09:08] LABS: PLATELET COUNT (AUTO) 8 K/uL (140-450)
[2017-09-11 09:09] LABS: CREATININE 4.7 mg/dL (0.7-1.3)
[2017-09-11 09:38] LABS: LYMPHOCYTES % (MANUAL) 10 % (20-46); MONOCYTES % (MANUAL) 12 % (5-12)
[2017-09-11] MEDS: DOPamine 400 MG/D5W PREMIX 250 ML IV PRN ×3 (09:41→22:56)
[2017-09-11] MEDS: NOREPINEPHRINE IV PRN ×2 (09:44→21:03)
[2017-09-11] MEDS: NACL 0.9% IV PRN ×2 (09:44→21:03)
[2017-09-11] MEDS: AMIODARONE 450 MG in DEXTROSE 5% 250 ML IV SCH (10:18)
[2017-09-11] MEDS: PHENYLEPHRINE 40 MG in NACL 0.9% 250 ML IV PRN ×3 (10:26→22:56)
[2017-09-11] MEDS ORDERED: SODIUM BICARBONATE 8.4% PFS 50 MEQ/50 ML SYR IVP SCH (14:00)
[2017-09-11] MEDS: CHLORHEXADINE GLUC 2% CLOTH TP SCH (14:16)
[2017-09-11] MEDS: MUPIROCIN 2% OINT 22 GM TUBE TP SCH (15:10)
[2017-09-11] MEDS ORDERED: HYDROCORTISONE NA SUCC 100 MG/2 ML VIAL IV SCH (15:30)
[2017-09-11] MEDS: LEVOFLOXACIN 250 MG/D5 PREMIX 50 ML IV SCH (15:52)
[2017-09-11] MEDS: SODIUM BICARBONATE 8.4% 100 MEQ in DEXTROSE 5% 1,000 ML IV SCH (16:16)
[2017-09-11 19:26] LABS: HEMATOCRIT 29.8 % (36-52); HEMOGLOBIN 9.9 g/dL (12.0-18.0); MEAN CORPUSCULAR HEMOGLOBIN 33 pg (27-31); MEAN CORPUSCULAR HGB CONC 33 g/dL (33-37); MEAN CORPUSCULAR VOLUME 98.2 fL (80-94); PLATELET COUNT (AUTO) 45 K/uL (140-450); RED BLOOD CELL COUNT(AUTO) 3.03 MIL/uL (4.20-6.10); RED CELL DISTRIBUTION WIDTH 15.1 % (11.6-13.7); WHITE BLOOD COUNT (AUTO) 21.4 K/uL (4.8-10.8)
[2017-09-11 20:06] LABS: LYMPHOCYTES % (MANUAL) 8 % (20-46); MONOCYTES % (MANUAL) 6 % (5-12)
[2017-09-11] MEDS: HYDROCORTISONE NA SUCC 100 MG/2 ML VIAL IV SCH (21:06)
[2017-09-11] MEDS: ATORVASTATIN 20 MG TAB NG SCH (21:07)
[2017-09-11] MEDS: PIPER/TAZO 2.25GM/D5W PREMIX 50 ML IV SCH (21:09)
[2017-09-12] VITALS (98 sets, daily range): BP systolic 94–155; BP diastolic 42–80
[2017-09-12] MEDS: SODIUM BICARBONATE 8.4% 100 MEQ in DEXTROSE 5% 1,000 ML IV SCH ×2 (02:33→14:00)
[2017-09-12] MEDS: VASOPRESSIN 20 UNITS in NACL 0.9% 250 ML IV SCH (02:34)
[2017-09-12] MEDS: HYDROCORTISONE NA SUCC 100 MG/2 ML VIAL IV SCH ×3 (04:05→20:32)
[2017-09-12] MEDS: PIPER/TAZO 2.25GM/D5W PREMIX 50 ML IV SCH ×3 (04:05→20:31)
[2017-09-12] MEDS: PHENYLEPHRINE 40 MG in NACL 0.9% 250 ML IV PRN ×3 (04:24→18:32)
[2017-09-12] MEDS: PANTOPRAZOLE 40 MG INJ VIAL IVP SCH (08:22)
[2017-09-12] MEDS: THIAMINE 100 MG TAB NG SCH (08:22)
[2017-09-12] MEDS: DOCUSATE 100 MG/10 ML UDC NG SCH ×2 (08:22→20:32)
[2017-09-12] MEDS: MAGNESIUM OXIDE 400 MG TAB NG SCH (08:23)
[2017-09-12] MEDS: MULTIVITAMIN/MINERALS 1 TAB NGT SCH (08:23)
[2017-09-12] MEDS: FOLIC ACID 1 MG TAB NG SCH (08:23)
[2017-09-12] MEDS: SUCRALFATE 1 GM TAB NG SCH ×2 (08:23→20:32)
[2017-09-12] MEDS: LACTOBACILLUS RHAMNOSUS GG 1 EACH CAP NG SCH (08:23)
[2017-09-12] MEDS: SODIUM PHOS / POTASSIUM PHOS 1 PKT PDR NG SCH ×3 (08:24→16:46)
[2017-09-12 08:37] LABS: ANION GAP 20.9 (8-16); CARBON DIOXIDE 18.7 mmol/L (21-32); POTASSIUM 5.6 mmol/L (3.5-5.1)
[2017-09-12 08:43] LABS: CREATININE 6.4 mg/dL (0.7-1.3)
[2017-09-12 08:45] LABS: MAGNESIUM 3.1 mg/dL (1.8-2.4)
[2017-09-12 08:48] LABS: HEMATOCRIT 29.2 % (36-52); HEMOGLOBIN 9.8 g/dL (12.0-18.0); MEAN CORPUSCULAR HEMOGLOBIN 33 pg (27-31); MEAN CORPUSCULAR HGB CONC 34 g/dL (33-37); MEAN CORPUSCULAR VOLUME 97.3 fL (80-94); PLATELET COUNT (AUTO) 30 K/uL (140-450); RED CELL DISTRIBUTION WIDTH 14.8 % (11.6-13.7); WHITE BLOOD COUNT (AUTO) 18.5 K/uL (4.8-10.8)
[2017-09-12 08:58] LABS: PHOSPHORUS 11.2 mg/dL (2.5-4.9)
[2017-09-12 09:21] LABS: BASOPHILS % (MANUAL) 0 % (0-2); EOSINOPHILS % (MANUAL) 0 % (0-4); LYMPHOCYTES % (MANUAL) 4 % (20-46); MONOCYTES % (MANUAL) 3 % (5-12)
[2017-09-12] MEDS ORDERED: AMIODARONE 200 MG TAB PO SCH (10:31)
[2017-09-12] MEDS ORDERED: CALCIUM GLUCONATE 10% 1,000 MG in NACL 0.9% 50 ML IV SCH (11:00)
[2017-09-12] MEDS ORDERED: DEXTROSE 50% 50 ML SYR IVP SCH (11:00)
[2017-09-12] MEDS ORDERED: INSULIN REGULAR, HUMAN 100 UNIT/ML VIAL IV SCH (11:00)
[2017-09-12] MEDS ORDERED: CALCIUM GLUCONATE 10% 1000 MG/10 ML VIAL ONE (11:25)
[2017-09-12] MEDS: CALCIUM ACETATE 667 MG TAB PO SCH ×2 (11:33→16:46)
[2017-09-12] MEDS: MUPIROCIN 2% OINT 22 GM TUBE TP SCH (12:40)
[2017-09-12] MEDS: CHLORHEXADINE GLUC 2% CLOTH TP SCH (12:40)
[2017-09-12] MEDS: ATORVASTATIN 20 MG TAB NG SCH (20:32)
[2017-09-13] VITALS (89 sets, daily range): BP systolic 73–152; BP diastolic 19–79
[2017-09-13] MEDS: SODIUM BICARBONATE 8.4% 100 MEQ in DEXTROSE 5% 1,000 ML IV SCH ×3 (01:03→23:06)
[2017-09-13] MEDS: PHENYLEPHRINE 40 MG in NACL 0.9% 250 ML IV PRN ×3 (02:29→21:01)
[2017-09-13] MEDS: PIPER/TAZO 2.25GM/D5W PREMIX 50 ML IV SCH ×3 (05:10→20:27)
[2017-09-13 06:55] LABS: ANION GAP 20.9 (8-16); CARBON DIOXIDE 18.8 mmol/L (21-32); POTASSIUM 4.7 mmol/L (3.5-5.1)
[2017-09-13 07:03] LABS: CREATININE 7.4 mg/dL (0.7-1.3)
[2017-09-13 07:04] LABS: PHOSPHORUS 9.1 mg/dL (2.5-4.9)
[2017-09-13 07:44] LABS: WHITE BLOOD COUNT (AUTO) 26.8 K/uL (4.8-10.8)
[2017-09-13 07:45] LABS: HEMATOCRIT 26.4 % (36-52); MEAN CORPUSCULAR HEMOGLOBIN 33 pg (27-31); MEAN CORPUSCULAR HGB CONC 34 g/dL (33-37); RED BLOOD CELL COUNT(AUTO) 2.78 MIL/uL (4.20-6.10); RED CELL DISTRIBUTION WIDTH 14.2 % (11.6-13.7)
[2017-09-13 07:48] LABS: LYMPHOCYTES % (MANUAL) 4 % (20-46); MONOCYTES % (MANUAL) 2 % (5-12); PLATELET COUNT (AUTO) 36 K/uL (140-450)
[2017-09-13] MEDS: MULTIVITAMIN/MINERALS 15 ML UDBTL GT SCH (08:47)
[2017-09-13] MEDS: SODIUM PHOS / POTASSIUM PHOS 1 PKT PDR NG SCH (08:47)
[2017-09-13] MEDS: POLYVINYL ALCOHOL 1.4% OP 15 ML SOL BOTH EYES SCH ×3 (08:47→16:47)
[2017-09-13] MEDS: CALCIUM ACETATE 667 MG TAB PO SCH ×3 (08:47→16:47)
[2017-09-13] MEDS: DOCUSATE 100 MG/10 ML UDC NG SCH ×2 (08:48→20:28)
[2017-09-13] MEDS: PANTOPRAZOLE 40 MG INJ VIAL IVP SCH (08:48)
[2017-09-13] MEDS: LACTOBACILLUS RHAMNOSUS GG 1 EACH CAP NG SCH (08:48)
[2017-09-13] MEDS: SUCRALFATE 1 GM TAB NG SCH ×2 (08:48→20:27)
[2017-09-13] MEDS: FOLIC ACID 1 MG TAB NG SCH (08:49)
[2017-09-13] MEDS: MAGNESIUM OXIDE 400 MG TAB NG SCH (08:49)
[2017-09-13] MEDS: THIAMINE 100 MG TAB NG SCH (08:49)
[2017-09-13] MEDS: AMIODARONE 200 MG TAB PO SCH (08:50)
[2017-09-13] MEDS: CHLORHEXADINE GLUC 2% CLOTH TP SCH (13:31)
[2017-09-13] MEDS: MUPIROCIN 2% OINT 22 GM TUBE TP SCH (13:31)
[2017-09-13] MEDS: LEVOFLOXACIN 250 MG/D5 PREMIX 50 ML IV SCH (15:02)
[2017-09-13] MEDS ORDERED: NACL 0.9% 1,000 ML IV ONE (15:45)
[2017-09-13] MEDS: LORazepam 2 MG/ML VIAL IVP SCH ×2 (20:24→23:13)
[2017-09-13] MEDS: ATORVASTATIN 20 MG TAB NG SCH (20:28)
[2017-09-13] MEDS: MORPHINE SULFATE 4 MG/ML SYR IVP SCH (20:58)
[2017-09-14] VITALS (94 sets, daily range): BP systolic 68–117; BP diastolic 37–78
[2017-09-14] MEDS: MORPHINE SULFATE 4 MG/ML SYR IVP SCH ×4 (00:13→08:23)
[2017-09-14] MEDS: LORazepam 2 MG/ML VIAL IVP SCH ×3 (02:09→08:24)
[2017-09-14] MEDS: PIPER/TAZO 2.25GM/D5W PREMIX 50 ML IV SCH ×3 (05:21→21:10)
[2017-09-14 06:06] LABS: ANION GAP 21.4 (8-16); CARBON DIOXIDE 19.2 mmol/L (21-32); POTASSIUM 4.6 mmol/L (3.5-5.1)
[2017-09-14 06:08] LABS: MAGNESIUM 3.1 mg/dL (1.8-2.4)
[2017-09-14 06:18] LABS: FOLIC ACID > 20.00 ng/mL (>3.0)
[2017-09-14 06:29] LABS: CREATININE 8.1 mg/dL (0.7-1.3)
[2017-09-14 06:37] LABS: PHOSPHORUS 10.6 mg/dL (2.5-4.9)
[2017-09-14 06:59] LABS: HEMATOCRIT 26.8 % (36-52); HEMOGLOBIN 9.1 g/dL (12.0-18.0); MEAN CORPUSCULAR HEMOGLOBIN 33 pg (27-31); MEAN CORPUSCULAR HGB CONC 34 g/dL (33-37); MEAN CORPUSCULAR VOLUME 96.3 fL (80-94); RED BLOOD CELL COUNT(AUTO) 2.78 MIL/uL (4.20-6.10); RED CELL DISTRIBUTION WIDTH 14.5 % (11.6-13.7); WHITE BLOOD COUNT (AUTO) 22.9 K/uL (4.8-10.8)
[2017-09-14 07:02] LABS: LYMPHOCYTES % (MANUAL) 3 % (20-46); MONOCYTES % (MANUAL) 4 % (5-12)
[2017-09-14 07:03] LABS: PLATELET COUNT (AUTO) 26 K/uL (140-450)
[2017-09-14] MEDS: MULTIVITAMIN/MINERALS 15 ML UDBTL GT SCH (08:22)
[2017-09-14] MEDS: PANTOPRAZOLE 40 MG INJ VIAL IVP SCH (08:22)
[2017-09-14] MEDS: CALCIUM ACETATE 667 MG TAB PO SCH ×2 (08:23→17:15)
[2017-09-14] MEDS: LACTOBACILLUS RHAMNOSUS GG 1 EACH CAP NG SCH (08:24)
[2017-09-14] MEDS: THIAMINE 100 MG TAB NG SCH (08:24)
[2017-09-14] MEDS: SUCRALFATE 1 GM TAB NG SCH ×2 (08:24→21:12)
[2017-09-14] MEDS: AMIODARONE 200 MG TAB PO SCH (08:25)
[2017-09-14] MEDS: FOLIC ACID 1 MG TAB NG SCH (08:25)
[2017-09-14] MEDS: DOCUSATE 100 MG/10 ML UDC NG SCH ×2 (08:25→21:12)
[2017-09-14] MEDS: POLYVINYL ALCOHOL 1.4% OP 15 ML SOL BOTH EYES SCH ×3 (09:36→17:15)
[2017-09-14] MEDS: SODIUM BICARBONATE 8.4% 100 MEQ in DEXTROSE 5% 1,000 ML IV SCH ×2 (10:50→21:20)
[2017-09-14] MEDS: PHENYLEPHRINE 40 MG in NACL 0.9% 250 ML IV PRN ×3 (10:57→21:05)
[2017-09-14] MEDS ORDERED: CALCIUM GLUCONATE 10% 1,000 MG in NACL 0.9% 50 ML IV SCH (11:27)
[2017-09-14] MEDS: MUPIROCIN 2% OINT 22 GM TUBE TP SCH (13:30)
[2017-09-14] MEDS: CHLORHEXADINE GLUC 2% CLOTH TP SCH (13:30)
[2017-09-14] MEDS: NACL 0.9% IV PRN (15:30)
[2017-09-14] MEDS: NOREPINEPHRINE IV PRN (15:30)
[2017-09-14] MEDS ORDERED: NACL 0.9% 1,000 ML IV ONE (16:00)
[2017-09-14] MEDS: RIFAXIMIN 550 MG TAB PO SCH (21:00)
[2017-09-14] MEDS: ATORVASTATIN 20 MG TAB NG SCH (21:12)
[2017-09-15] VITALS (84 sets, daily range): BP systolic 56–110; BP diastolic 33–65
[2017-09-15] MEDS: PHENYLEPHRINE 40 MG in NACL 0.9% 250 ML IV PRN ×5 (02:22→22:04)
[2017-09-15] MEDS: PIPER/TAZO 2.25GM/D5W PREMIX 50 ML IV SCH ×3 (04:12→20:46)
[2017-09-15 05:53] LABS: ANION GAP 20.4 (8-16); CARBON DIOXIDE 20.3 mmol/L (21-32); MAGNESIUM 2.7 mg/dL (1.8-2.4); POTASSIUM 4.7 mmol/L (3.5-5.1)
[2017-09-15 06:58] LABS: HEMATOCRIT 27.8 % (36-52); HEMOGLOBIN 9.5 g/dL (12.0-18.0); MEAN CORPUSCULAR HEMOGLOBIN 32 pg (27-31); MEAN CORPUSCULAR HGB CONC 34 g/dL (33-37); MEAN CORPUSCULAR VOLUME 94.8 fL (80-94); RED BLOOD CELL COUNT(AUTO) 2.94 MIL/uL (4.20-6.10); RED CELL DISTRIBUTION WIDTH 14.1 % (11.6-13.7)
[2017-09-15 07:01] LABS: PLATELET COUNT (AUTO) 12 K/uL (140-450)
[2017-09-15 07:32] LABS: PHOSPHORUS 10.5 mg/dL (2.5-4.9)
[2017-09-15 07:34] LABS: CREATININE 8.5 mg/dL (0.7-1.3)
[2017-09-15] MEDS: CALCIUM ACETATE 667 MG TAB PO SCH ×2 (08:51→16:31)
[2017-09-15] MEDS: LACTOBACILLUS RHAMNOSUS GG 1 EACH CAP NG SCH (08:51)
[2017-09-15] MEDS: SUCRALFATE 1 GM TAB NG SCH ×2 (08:51→20:50)
[2017-09-15] MEDS: AMIODARONE 200 MG TAB PO SCH (08:51)
[2017-09-15] MEDS: PANTOPRAZOLE 40 MG INJ VIAL IVP SCH (08:51)
[2017-09-15] MEDS: MULTIVITAMIN/MINERALS 15 ML UDBTL GT SCH (08:52)
[2017-09-15] MEDS: FOLIC ACID 1 MG TAB NG SCH (08:52)
[2017-09-15] MEDS: DOCUSATE 100 MG/10 ML UDC NG SCH ×2 (08:52→20:50)
[2017-09-15] MEDS: RIFAXIMIN 550 MG TAB PO SCH ×2 (08:52→20:49)
[2017-09-15] MEDS: THIAMINE 100 MG TAB NG SCH (08:52)
[2017-09-15] MEDS: THERAHONEY GEL 42.5 GM TP SCH (09:00)
[2017-09-15] MEDS: POLYVINYL ALCOHOL 1.4% OP 15 ML SOL BOTH EYES SCH ×3 (09:00→16:31)
[2017-09-15 09:04] LABS: LYMPHOCYTES % (MANUAL) 5 % (20-46); MONOCYTES % (MANUAL) 2 % (5-12)
[2017-09-15] MEDS ORDERED: CALCIUM GLUCONATE 10% 1,000 MG in NACL 0.9% 50 ML IV SCH (09:25)
[2017-09-15] MEDS: SODIUM BICARBONATE 8.4% 100 MEQ in DEXTROSE 5% 1,000 ML IV SCH ×3 (09:44→20:49)
[2017-09-15] MEDS: MUPIROCIN 2% OINT 22 GM TUBE TP SCH (13:30)
[2017-09-15] MEDS: CHLORHEXADINE GLUC 2% CLOTH TP SCH (13:30)
[2017-09-15] MEDS: LEVOFLOXACIN 250 MG/D5 PREMIX 50 ML IV SCH (16:31)
[2017-09-15] MEDS: NACL 0.9% IV PRN (20:48)
[2017-09-15] MEDS: NOREPINEPHRINE IV PRN (20:48)
[2017-09-15] MEDS: ATORVASTATIN 20 MG TAB NG SCH (20:49)
[2017-09-16] VITALS (82 sets, daily range): BP systolic 55–117; BP diastolic 33–92
[2017-09-16] MEDS ORDERED: HYDROcodone/APAP 7.5/325 MG 1 TAB PO PRN (00:15)
[2017-09-16] MEDS ORDERED: LIDOCAINE JELLY 2% 30 ML TUBE TP SCH (01:00)
[2017-09-16] MEDS: PHENYLEPHRINE 40 MG in NACL 0.9% 250 ML IV PRN ×3 (02:54→18:50)
[2017-09-16] MEDS: PIPER/TAZO 2.25GM/D5W PREMIX 50 ML IV SCH (04:23)
[2017-09-16 05:04] LABS: HEMATOCRIT 22.9 % (36-52); HEMOGLOBIN 7.6 g/dL (12.0-18.0); MEAN CORPUSCULAR HEMOGLOBIN 31 pg (27-31); MEAN CORPUSCULAR HGB CONC 33 g/dL (33-37); MEAN CORPUSCULAR VOLUME 94.7 fL (80-94); RED BLOOD CELL COUNT(AUTO) 2.42 MIL/uL (4.20-6.10); RED CELL DISTRIBUTION WIDTH 14.7 % (11.6-13.7); WHITE BLOOD COUNT (AUTO) 26.6 K/uL (4.8-10.8)
[2017-09-16 06:17] LABS: CARBON DIOXIDE 21.8 mmol/L (21-32); MAGNESIUM 2.8 mg/dL (1.8-2.4); POTASSIUM 5.8 mmol/L (3.5-5.1)
[2017-09-16 07:06] LABS: PLATELET COUNT (AUTO) 34 K/uL (140-450)
[2017-09-16 07:07] LABS: LYMPHOCYTES % (MANUAL) 5 % (20-46); MONOCYTES % (MANUAL) 6 % (5-12)
[2017-09-16 07:18] LABS: PHOSPHORUS 11.3 mg/dL (2.5-4.9)
[2017-09-16] MEDS: MULTIVITAMIN/MINERALS 15 ML UDBTL GT SCH (08:42)
[2017-09-16] MEDS: DOCUSATE 100 MG/10 ML UDC NG SCH (08:42)
[2017-09-16] MEDS: LACTOBACILLUS RHAMNOSUS GG 1 EACH CAP NG SCH (08:42)
[2017-09-16] MEDS: PANTOPRAZOLE 40 MG INJ VIAL IVP SCH (08:42)
[2017-09-16] MEDS: CALCIUM ACETATE 667 MG TAB PO SCH ×2 (08:43→17:17)
[2017-09-16] MEDS: FOLIC ACID 1 MG TAB NG SCH (08:43)
[2017-09-16] MEDS: AMIODARONE 200 MG TAB PO SCH (08:43)
[2017-09-16] MEDS: SUCRALFATE 1 GM TAB NG SCH (08:43)
[2017-09-16] MEDS: RIFAXIMIN 550 MG TAB PO SCH (08:43)
[2017-09-16] MEDS: THIAMINE 100 MG TAB NG SCH (08:43)
[2017-09-16] MEDS: POLYVINYL ALCOHOL 1.4% OP 15 ML SOL BOTH EYES SCH ×3 (08:43→17:18)
[2017-09-16] MEDS: THERAHONEY GEL 42.5 GM TP SCH (08:44)
[2017-09-16] MEDS: SODIUM BICARBONATE 8.4% 100 MEQ in DEXTROSE 5% 1,000 ML IV SCH (09:21)
[2017-09-16] MEDS: NOREPINEPHRINE IV PRN (16:16)
[2017-09-16] MEDS: NACL 0.9% IV PRN (16:16)
== END 2017-09-16 20:35 | disposition expired | DRG 870 ==
LOC: MED 15:54 → MTU 23:13 → MIC 09-10 06:55
PROVIDERS: ADMIT Family Medicine Sports Medicine; ATTEND Family Medicine Sports Medicine
PROC: 5A12012 Performance of Cardiac Output, Single, Manual (ICD-10-PCS; 2017-09-09)
PROC: 02HV33Z Insertion of Infusion Device into Superior Vena Cava, Percutaneous Approach (ICD-10-PCS; principal; 2017-09-10)
PROC: 5A1955Z Respiratory Ventilation, Greater than 96 Consecutive Hours (ICD-10-PCS; 2017-09-10)
PROC: 0BH17EZ Insertion of Endotracheal Airway into Trachea, Via Natural or Artificial Opening (ICD-10-PCS; 2017-09-10)
PROC: 30233R1 Transfusion of Nonautologous Platelets into Peripheral Vein, Percutaneous Approach (ICD-10-PCS; 2017-09-10)
DX: A41.9 Sepsis, unspecified organism (principal); I21.4 Non-ST elevation (NSTEMI) myocardial infarction; I46.9 Cardiac arrest, cause unspecified; E43 Unspecified severe protein-calorie malnutrition; J69.0 Pneumonitis due to inhalation of food and vomit; G93.1 Anoxic brain damage, not elsewhere classified; J96.21 Acute and chronic respiratory failure with hypoxia; K92.2 Gastrointestinal hemorrhage, unspecified; N17.0 Acute kidney failure with tubular necrosis; R65.21 Severe sepsis with septic shock; G93.41 Metabolic encephalopathy; I50.43 Acute on chronic combined systolic (congestive) and diastolic (congestive) heart failure; E87.1 Hypo-osmolality and hyponatremia; I13.0 Hypertensive heart and chronic kidney disease with heart failure and stage 1 through stage 4 chronic kidney disease, or unspecified chronic kidney disease; I42.9 Cardiomyopathy, unspecified; N39.0 Urinary tract infection, site not specified; F10.239 Alcohol dependence with withdrawal, unspecified; E83.42 Hypomagnesemia; D69.6 Thrombocytopenia, unspecified; E86.0 Dehydration; E78.5 Hyperlipidemia, unspecified; E87.6 Hypokalemia; E87.5 Hyperkalemia; I48.91 Unspecified atrial fibrillation; N18.9 Chronic kidney disease, unspecified; Z91.14 Patient's other noncompliance with medication regimen; J45.909 Unspecified asthma, uncomplicated; Z68.36 Body mass index [BMI] 36.0-36.9, adult; Z59.0 Homelessness; D64.9 Anemia, unspecified; Y90.9 Presence of alcohol in blood, level not specified; E78.2 Mixed hyperlipidemia; E05.80 Other thyrotoxicosis without thyrotoxic crisis or storm; E66.9 Obesity, unspecified; Z82.49 Family history of ischemic heart disease and other diseases of the circulatory system; E83.51 Hypocalcemia; E11.22 Type 2 diabetes mellitus with diabetic chronic kidney disease; E83.39 Other disorders of phosphorus metabolism; Z79.82 Long term (current) use of aspirin
CPT/HCPCS: 36415; 36600; 71045; 80048; 80053; 80305; 81001; 82140; 82150; 82550; 82553; 82607; 82746; 82803; 82948; 83036; 83605; 83690; 83735; 83880; 84100; 84439; 84443; 84484; 85025; 85379; 85384; 85610; 85730; 86886; 86900; 86901; 87040; 87081; 87186; 87205; 93005; 94002; 94003; 95816; 96360; 96361; 99291; C9113; G0482; J0282; J0610; J1265; J1642; J1644; J1720; J1815; J1956; J2060; J2270; J2370; J2543; J3411; J3475; J3490; J7030; J7060; P9035; Q0092